=== PATIENT | male | born 1960 | race African-American/Black ===

== ENCOUNTER 2019-04-30 04:38 | Inpatient (IN) ==
[2019-04-30 05:25] LABS: Basophils % 0.3 % (0.0-0.8); Hematocrit 54.5 VOL% (42.0-52.0); Immature Granulocytes % 0.5 %; Immature Granulocytes Absolute 0.05 #; Lymphocytes # 1.1 10*3/uL (1.4-4.0); Lymphocytes % 10.4 % (21.2-54.2); Mean Corpuscular HGB Conc 31.2 GM/DL (32-36); Mean Corpuscular Volume 79.2 FL (87-102); Monocytes % 4.3 % (1.7-12.7); Neutrophils % 84.5 % (38.7-73.9); Platelet Count 247 T/CUMM (130-400); Red Blood Count 6.88 MC/CUMM (3.8-5.5); Red Cell Distribution Width 18.4 % (9.3-17.3); White Blood Count 10.1 T/CUMM (4-12)
[2019-04-30 06:48] LABS: Albumin 3.5 G/DL (3.4-5.0); Bilirubin,Total 0.5 MG/DL (0.2-1.0); Calcium 9.4 MG/DL (8.5-10.1); Osmolality,Calculated 276.4 MOS/KG (273-304); Total Protein 8.1 G/DL (6.4-8.3)
[2019-04-30] MEDS ORDERED: HYDROmorphone 2 MG/1 ML VIAL IV STA (07:47)
[2019-04-30] MEDS ORDERED: ONDANSETRON 4 MG/2 ML VIAL IV STA (07:47)
[2019-04-30] MEDS ORDERED: SODIUM CHLORIDE 0.9% 1,000 ML IV STA (07:48)
[2019-04-30] MEDS ORDERED: ONDANSETRON 4 MG/2 ML VIAL IV PRN (08:10)
[2019-04-30] MEDS ORDERED: BISACODYL 5 MG TABLET PO PRN (08:10)
[2019-04-30] MEDS ORDERED: LABETALOL 20 MG/4 ML SYRINGE IV ONE (08:25)
[2019-04-30] MEDS ORDERED: SODIUM CHLORIDE 0.9% 1,000 ML IV SCH (08:30)
[2019-04-30] MEDS ORDERED: DEXTROSE 50% 25 GM/50 ML VIAL IV PRN (08:32)
[2019-04-30] MEDS ORDERED: GLUCAGON 1 MG VIAL IM PRN (08:32)
[2019-04-30] MEDS ORDERED: amLODIPine 5 MG TABLET PO SCH (09:00)
[2019-04-30] MEDS ORDERED: INFLUENZA VIRUS VACCINE 0.5 ML SYRINGE IM ONE (10:34)
[2019-04-30 10:43] LABS: Risk Ratio 1.69; Thyroid Stimulating Hormone 2.47 uIU/ml (0.358-3.74); VLDL CHOLESTEROL 20.6 MG/DL
[2019-04-30] MEDS: PANTOPRAZOLE 40 MG VIAL IV SCH ×2 (12:23→21:18)
[2019-04-30] MEDS: ENOXAPARIN 30 MG/0.3 ML SYRINGE SUBCUT SCH (12:24)
[2019-04-30] MEDS: MORPHINE 4 MG/1 ML VIAL IV PRN ×3 (14:46→23:31)
[2019-04-30] MEDS: INSULIN LISPRO 100 UNIT/ML SUBCUT SCH ×2 (14:52→17:59)
[2019-04-30] MEDS: SODIUM CHLORIDE 0.9% 1,000 ML IV SCH ×3 (18:08→22:23)
[2019-04-30] MEDS: levETIRAcetam 500 MG TABLET PO SCH ×2 (21:18→23:54)
[2019-05-01] MEDS ORDERED: hydrALAZINE 20 MG/1 ML VIAL IV PRN (01:27)
[2019-05-01] MEDS ORDERED: SODIUM CHLORIDE 0.9% 1,000 ML IV SCH (02:30)
[2019-05-01] MEDS: MORPHINE 4 MG/1 ML VIAL IV PRN ×2 (04:41→09:01)
[2019-05-01 06:27] LABS: Basophils % 0.4 % (0.0-0.8); Hematocrit 46.8 VOL% (42.0-52.0); Immature Granulocytes % 0.4 %; Immature Granulocytes Absolute 0.04 #; Lymphocytes # 0.9 10*3/uL (1.4-4.0); Mean Corpuscular HGB Conc 32.1 GM/DL (32-36); Mean Corpuscular Volume 77.7 FL (87-102); Mean Platelet Volume 10.4 FL (9.6-12.0); Monocytes % 4.2 % (1.7-12.7); Platelet Count 218 T/CUMM (130-400); Red Blood Count 6.02 MC/CUMM (3.8-5.5); Red Cell Distribution Width 17.4 % (9.3-17.3); White Blood Count 10.3 T/CUMM (4-12)
[2019-05-01 07:17] LABS: Albumin 2.7 G/DL (3.4-5.0); Bilirubin,Total 1.6 MG/DL (0.2-1.0); Calcium 8.5 MG/DL (8.5-10.1); Osmolality,Calculated 292.4 MOS/KG (273-304); Total Protein 6.6 G/DL (6.4-8.3)
[2019-05-01] MEDS: PANTOPRAZOLE 40 MG VIAL IV SCH ×2 (09:04→21:00)
[2019-05-01] MEDS: ENOXAPARIN 30 MG/0.3 ML SYRINGE SUBCUT SCH (09:10)
[2019-05-01] MEDS: amLODIPine 10 MG TABLET PO SCH (09:11)
[2019-05-01] MEDS: INSULIN LISPRO 100 UNIT/ML SUBCUT SCH ×4 (09:27→19:09)
[2019-05-01] MEDS ORDERED: LORazepam 2 MG/1 ML VIAL IV PRN (11:36)
[2019-05-01] MEDS ORDERED: LABETALOL 100 MG/20 ML VIAL IV ONE (11:45)
[2019-05-01] MEDS: LACTATED RINGERS 1,000 ML IV SCH ×3 (12:00→22:33)
[2019-05-01] MEDS: HYDROmorphone 2 MG/1 ML VIAL IV PRN ×3 (14:18→22:35)
[2019-05-01] MEDS: MEROPENEM 500 MG in SODIUM CHLORIDE 0.9% 100 ML IV SCH ×2 (15:04→20:59)
[2019-05-01 23:50] LABS: Barbiturates Screen,Urine Negative (Negative); Benzodiazepines Screen,Urine Negative (Negative); Cannabinoid Screen,Urine Positive (Negative); Opiate Screen,Urine Positive (Negative); Phencyclidine Screen,Urine Negative (Negative)
[2019-05-02 01:41] LABS: Basophils % 0.2 % (0.0-0.8); Eosinophils % 0.1 % (0.00-10.9); Hematocrit 38.4 VOL% (42.0-52.0); Hemoglobin 12.4 GM/DL (14.0-18.0); Immature Granulocytes % 0.3 %; Immature Granulocytes Absolute 0.03 #; Lymphocytes # 0.9 10*3/uL (1.4-4.0); Lymphocytes % 9.6 % (21.2-54.2); Mean Corpuscular HGB Conc 32.3 GM/DL (32-36); Mean Corpuscular Volume 77.6 FL (87-102); Mean Platelet Volume 10.5 FL (9.6-12.0); Monocytes % 3.5 % (1.7-12.7); Neutrophils % 86.3 % (38.7-73.9); Platelet Count 156 T/CUMM (130-400); Red Blood Count 4.95 MC/CUMM (3.8-5.5); Red Cell Distribution Width 16.1 % (9.3-17.3); White Blood Count 9.2 T/CUMM (4-12)
[2019-05-02 01:51] LABS: Albumin 2.2 G/DL (3.4-5.0); Bilirubin,Total 0.6 MG/DL (0.2-1.0); Calcium 8.4 MG/DL (8.5-10.1); Total Protein 5.9 G/DL (6.4-8.3)
[2019-05-02] MEDS: HYDROmorphone 2 MG/1 ML VIAL IV PRN ×5 (02:33→23:59)
[2019-05-02] MEDS: MEROPENEM 500 MG in SODIUM CHLORIDE 0.9% 100 ML IV SCH ×3 (04:54→21:14)
[2019-05-02] MEDS: LACTATED RINGERS 1,000 ML IV SCH ×3 (04:56→14:29)
[2019-05-02] MEDS: INSULIN LISPRO 100 UNIT/ML SUBCUT SCH ×4 (07:33→17:58)
[2019-05-02] MEDS: amLODIPine 10 MG TABLET PO SCH (09:03)
[2019-05-02] MEDS: ENOXAPARIN 30 MG/0.3 ML SYRINGE SUBCUT SCH (09:03)
[2019-05-02] MEDS: PANTOPRAZOLE 40 MG VIAL IV SCH ×2 (09:07→21:15)
[2019-05-02] MEDS ORDERED: LOSARTAN/HCTZ 50-12.5 MG TABLET PO SCH (11:45)
[2019-05-02] MEDS: METOPROLOL TARTRATE 25 MG TABLET PO SCH ×2 (14:06→21:14)
[2019-05-02] MEDS: levETIRAcetam 500 MG TABLET PO SCH (21:14)
[2019-05-03] MEDS: LACTATED RINGERS 1,000 ML IV SCH ×4 (00:01→23:42)
[2019-05-03] MEDS: INSULIN LISPRO 100 UNIT/ML SUBCUT SCH ×4 (00:03→18:01)
[2019-05-03 05:13] LABS: Basophils % 0.2 % (0.0-0.8); Eosinophils % 0.4 % (0.00-10.9); Hematocrit 34.6 VOL% (42.0-52.0); Hemoglobin 11.2 GM/DL (14.0-18.0); Immature Granulocytes % 0.8 %; Immature Granulocytes Absolute 0.08 #; Lymphocytes # 1.2 10*3/uL (1.4-4.0); Lymphocytes % 11.4 % (21.2-54.2); Mean Corpuscular HGB Conc 32.4 GM/DL (32-36); Mean Corpuscular Volume 76.5 FL (87-102); Mean Platelet Volume 10.3 FL (9.6-12.0); Monocytes % 5.8 % (1.7-12.7); Neutrophils % 81.4 % (38.7-73.9); Platelet Count 163 T/CUMM (130-400); Red Blood Count 4.52 MC/CUMM (3.8-5.5); Red Cell Distribution Width 15.1 % (9.3-17.3); White Blood Count 10.3 T/CUMM (4-12)
[2019-05-03] MEDS: MEROPENEM 500 MG in SODIUM CHLORIDE 0.9% 100 ML IV SCH ×3 (05:19→21:08)
[2019-05-03 05:44] LABS: Albumin 2.3 G/DL (3.4-5.0); Bilirubin,Total 0.9 MG/DL (0.2-1.0); Calcium 8.9 MG/DL (8.5-10.1); Osmolality,Calculated 278.5 MOS/KG (273-304); Total Protein 6.4 G/DL (6.4-8.3)
[2019-05-03] MEDS: ENOXAPARIN 30 MG/0.3 ML SYRINGE SUBCUT SCH ×2 (08:57→09:59)
[2019-05-03] MEDS ORDERED: LOSARTAN 50 MG TABLET PO SCH (09:00)
[2019-05-03 09:40] LABS: INR 0.9; PT Patient Result 10.1 SECS (9.6-12.2)
[2019-05-03] MEDS: amLODIPine 10 MG TABLET PO SCH (09:58)
[2019-05-03] MEDS: levETIRAcetam 500 MG TABLET PO SCH ×2 (09:58→21:09)
[2019-05-03] MEDS: METOPROLOL TARTRATE 25 MG TABLET PO SCH ×2 (09:58→21:09)
[2019-05-03] MEDS: LABETALOL 100 MG/20 ML VIAL IV PRN (10:45)
[2019-05-03] MEDS: HYDROmorphone 2 MG/1 ML VIAL IV PRN ×2 (10:47→21:02)
[2019-05-03] MEDS: PANTOPRAZOLE 40 MG VIAL IV SCH ×2 (10:53→21:04)
[2019-05-03 13:13] LABS: Folate 6.1 NG/ML (5.4-24.0)
[2019-05-03] MEDS: SIMETHICONE CHEW 125 MG TABLET PO SCH ×3 (13:48→21:08)
[2019-05-03] MEDS: ACETAMINOPHEN 325 MG TABLET PO PRN (18:44)
[2019-05-04] MEDS: LABETALOL 100 MG/20 ML VIAL IV PRN (00:36)
[2019-05-04] MEDS: INSULIN LISPRO 100 UNIT/ML SUBCUT SCH ×4 (00:42→17:45)
[2019-05-04] MEDS: HYDROmorphone 2 MG/1 ML VIAL IV PRN ×5 (01:50→20:38)
[2019-05-04] MEDS: MEROPENEM 500 MG in SODIUM CHLORIDE 0.9% 100 ML IV SCH ×3 (05:59→20:45)
[2019-05-04 06:34] LABS: Basophils % 0.3 % (0.0-0.8); Eosinophils # 0.1 10*3/uL (0.0-0.87); Eosinophils % 0.4 % (0.00-10.9); Hematocrit 33.9 VOL% (42.0-52.0); Hemoglobin 11.2 GM/DL (14.0-18.0); Immature Granulocytes % 0.5 %; Immature Granulocytes Absolute 0.06 #; Lymphocytes # 0.9 10*3/uL (1.4-4.0); Lymphocytes % 7.7 % (21.2-54.2); Mean Corpuscular Volume 74.8 FL (87-102); Monocytes % 6.9 % (1.7-12.7); Neutrophils % 84.2 % (38.7-73.9); Platelet Count 190 T/CUMM (130-400); Red Blood Count 4.53 MC/CUMM (3.8-5.5); Red Cell Distribution Width 15.2 % (9.3-17.3); White Blood Count 11.9 T/CUMM (4-12)
[2019-05-04 07:06] LABS: Bilirubin,Direct 0.42 MG/DL (0.0-0.20); Bilirubin,Indirect 1.2 MG/DL (0.0-1.0); Bilirubin,Total 1.6 MG/DL (0.2-1.0); Calcium 8.8 MG/DL (8.5-10.1); Osmolality,Calculated 273.8 MOS/KG (273-304); Total Protein 6.4 G/DL (6.4-8.3)
[2019-05-04] MEDS: METOPROLOL TARTRATE 25 MG TABLET PO SCH ×2 (08:55→20:47)
[2019-05-04] MEDS: amLODIPine 10 MG TABLET PO SCH (08:55)
[2019-05-04] MEDS: SIMETHICONE CHEW 125 MG TABLET PO SCH ×3 (08:55→20:47)
[2019-05-04] MEDS: PANTOPRAZOLE 40 MG VIAL IV SCH ×2 (08:56→20:44)
[2019-05-04] MEDS: ENOXAPARIN 30 MG/0.3 ML SYRINGE SUBCUT SCH (08:56)
[2019-05-04] MEDS: levETIRAcetam 500 MG TABLET PO SCH ×2 (08:56→20:47)
[2019-05-04] MEDS: LACTATED RINGERS 1,000 ML IV SCH ×4 (08:59→23:20)
[2019-05-05] MEDS: INSULIN LISPRO 100 UNIT/ML SUBCUT SCH ×4 (00:40→19:19)
[2019-05-05] MEDS: HYDROmorphone 2 MG/1 ML VIAL IV PRN ×3 (02:13→17:26)
[2019-05-05] MEDS: LABETALOL 100 MG/20 ML VIAL IV PRN (02:16)
[2019-05-05 05:07] LABS: Basophils % 0.2 % (0.0-0.8); Eosinophils # 0.1 10*3/uL (0.0-0.87); Eosinophils % 0.6 % (0.00-10.9); Hematocrit 33.8 VOL% (42.0-52.0); Hemoglobin 11.1 GM/DL (14.0-18.0); Immature Granulocytes % 0.7 %; Immature Granulocytes Absolute 0.09 #; Lymphocytes # 1.1 10*3/uL (1.4-4.0); Lymphocytes % 8.9 % (21.2-54.2); Mean Corpuscular HGB Conc 32.8 GM/DL (32-36); Mean Corpuscular Volume 74.8 FL (87-102); Mean Platelet Volume 10.5 FL (9.6-12.0); Monocytes % 7.7 % (1.7-12.7); Neutrophils % 81.9 % (38.7-73.9); Platelet Count 226 T/CUMM (130-400); Red Blood Count 4.52 MC/CUMM (3.8-5.5); Red Cell Distribution Width 14.8 % (9.3-17.3); White Blood Count 12.8 T/CUMM (4-12)
[2019-05-05 05:30] LABS: Calcium 8.8 MG/DL (8.5-10.1); Osmolality,Calculated 277.7 MOS/KG (273-304)
[2019-05-05] MEDS: MEROPENEM 500 MG in SODIUM CHLORIDE 0.9% 100 ML IV SCH ×3 (06:52→21:02)
[2019-05-05] MEDS: LACTATED RINGERS 1,000 ML IV SCH ×2 (06:55→17:27)
[2019-05-05] MEDS: SIMETHICONE CHEW 125 MG TABLET PO SCH ×4 (09:34→21:01)
[2019-05-05] MEDS: amLODIPine 10 MG TABLET PO SCH (09:50)
[2019-05-05] MEDS: ACETAMINOPHEN 325 MG TABLET PO PRN (09:50)
[2019-05-05] MEDS: levETIRAcetam 500 MG TABLET PO SCH ×2 (09:50→21:01)
[2019-05-05] MEDS: METOPROLOL TARTRATE 25 MG TABLET PO SCH ×2 (09:50→21:01)
[2019-05-05] MEDS: PANTOPRAZOLE 40 MG VIAL IV SCH ×2 (09:51→21:03)
[2019-05-05] MEDS: ENOXAPARIN 30 MG/0.3 ML SYRINGE SUBCUT SCH (09:51)
[2019-05-06] MEDS: LACTATED RINGERS 1,000 ML IV SCH ×4 (01:04→19:12)
[2019-05-06] MEDS: HYDROmorphone 2 MG/1 ML VIAL IV PRN ×2 (01:05→16:53)
[2019-05-06] MEDS: MEROPENEM 500 MG in SODIUM CHLORIDE 0.9% 100 ML IV SCH ×3 (05:20→21:27)
[2019-05-06 05:51] LABS: Basophils % 0.4 % (0.0-0.8); Eosinophils # 0.1 10*3/uL (0.0-0.87); Eosinophils % 0.6 % (0.00-10.9); Hematocrit 33.4 VOL% (42.0-52.0); Immature Granulocytes % 0.9 %; Lymphocytes # 1.1 10*3/uL (1.4-4.0); Lymphocytes % 9.5 % (21.2-54.2); Mean Corpuscular HGB Conc 32.9 GM/DL (32-36); Mean Corpuscular Volume 74.7 FL (87-102); Mean Platelet Volume 10.5 FL (9.6-12.0); Monocytes % 7.5 % (1.7-12.7); Neutrophils % 81.1 % (38.7-73.9); Platelet Count 266 T/CUMM (130-400); Red Blood Count 4.47 MC/CUMM (3.8-5.5); Red Cell Distribution Width 14.6 % (9.3-17.3)
[2019-05-06] MEDS: INSULIN LISPRO 100 UNIT/ML SUBCUT SCH ×4 (06:14→17:37)
[2019-05-06 06:18] LABS: Calcium 8.7 MG/DL (8.5-10.1); Osmolality,Calculated 274.7 MOS/KG (273-304)
[2019-05-06] MEDS: PANTOPRAZOLE 40 MG VIAL IV SCH ×2 (09:01→21:28)
[2019-05-06] MEDS: METOPROLOL TARTRATE 50 MG TABLET PO SCH ×2 (09:01→21:28)
[2019-05-06] MEDS: ENOXAPARIN 30 MG/0.3 ML SYRINGE SUBCUT SCH (09:01)
[2019-05-06] MEDS: SIMETHICONE CHEW 125 MG TABLET PO SCH ×4 (09:01→21:28)
[2019-05-06] MEDS: amLODIPine 10 MG TABLET PO SCH (09:01)
[2019-05-06] MEDS: levETIRAcetam 500 MG TABLET PO SCH ×2 (09:01→21:28)
[2019-05-07] MEDS: HYDROmorphone 2 MG/1 ML VIAL IV PRN ×3 (01:25→21:28)
[2019-05-07] MEDS: MEROPENEM 500 MG in SODIUM CHLORIDE 0.9% 100 ML IV SCH ×3 (05:18→21:30)
[2019-05-07 05:34] LABS: Basophils # 0.1 10*3/uL (0.0-0.2); Basophils % 0.4 % (0.0-0.8); Eosinophils # 0.1 10*3/uL (0.0-0.87); Eosinophils % 0.7 % (0.00-10.9); Hematocrit 31.6 VOL% (42.0-52.0); Hemoglobin 10.4 GM/DL (14.0-18.0); Immature Granulocytes % 1.2 %; Immature Granulocytes Absolute 0.13 #; Lymphocytes # 1.3 10*3/uL (1.4-4.0); Lymphocytes % 11.5 % (21.2-54.2); Mean Corpuscular HGB Conc 32.9 GM/DL (32-36); Mean Corpuscular Volume 74.9 FL (87-102); Mean Platelet Volume 10.3 FL (9.6-12.0); Monocytes % 7.8 % (1.7-12.7); Neutrophils % 78.4 % (38.7-73.9); Platelet Count 304 T/CUMM (130-400); Red Blood Count 4.22 MC/CUMM (3.8-5.5); Red Cell Distribution Width 14.7 % (9.3-17.3); White Blood Count 11.3 T/CUMM (4-12)
[2019-05-07 05:54] LABS: Anisocytosis Slight; Hypochromasia 1+; Microcytosis 2+; Target Cells 1+
[2019-05-07 05:55] LABS: Platelet Estimate Normal
[2019-05-07 06:14] LABS: Calcium 8.5 MG/DL (8.5-10.1); Osmolality,Calculated 277.4 MOS/KG (273-304)
[2019-05-07] MEDS: INSULIN LISPRO 100 UNIT/ML SUBCUT SCH ×4 (07:18→17:17)
[2019-05-07] MEDS ORDERED: MAGNESIUM SULF RIDER 2 GM in PREMIX 1 EACH IV PRN (07:42)
[2019-05-07] MEDS ORDERED: MAGNESIUM SULF RIDER 4 GM in PREMIX 1 EACH IV PRN (07:42)
[2019-05-07] MEDS: LACTATED RINGERS 1,000 ML IV SCH ×3 (08:43→22:45)
[2019-05-07] MEDS: SIMETHICONE CHEW 125 MG TABLET PO SCH ×4 (08:43→21:26)
[2019-05-07] MEDS: ENOXAPARIN 30 MG/0.3 ML SYRINGE SUBCUT SCH (08:44)
[2019-05-07] MEDS: levETIRAcetam 500 MG TABLET PO SCH ×2 (08:44→21:26)
[2019-05-07] MEDS: amLODIPine 10 MG TABLET PO SCH (08:44)
[2019-05-07] MEDS: PANTOPRAZOLE 40 MG VIAL IV SCH ×2 (08:44→21:26)
[2019-05-07] MEDS: METOPROLOL TARTRATE 50 MG TABLET PO SCH ×2 (08:44→21:26)
[2019-05-07] MEDS ORDERED: TISSUE ADHESIVE 1 EACH APPLICATOR TOP ONE (09:40)
[2019-05-07 09:57] LABS: Neutrophils,Peritoneal Fluid 92 %
[2019-05-07 10:00] LABS: RBC,Peritoneal Fluid 3160 T/CUMM
[2019-05-07] MEDS: POTASSIUM CHLORIDE 20 MEQ TABLET PO PRN ×2 (17:47→21:26)
[2019-05-08] MEDS: INSULIN LISPRO 100 UNIT/ML SUBCUT SCH ×4 (01:41→17:23)
[2019-05-08] MEDS: HYDROmorphone 2 MG/1 ML VIAL IV PRN ×5 (05:16→21:14)
[2019-05-08] MEDS: MEROPENEM 500 MG in SODIUM CHLORIDE 0.9% 100 ML IV SCH ×3 (05:18→21:22)
[2019-05-08] MEDS: levETIRAcetam 500 MG TABLET PO SCH ×2 (08:54→21:21)
[2019-05-08] MEDS: amLODIPine 10 MG TABLET PO SCH (08:54)
[2019-05-08] MEDS: METOPROLOL TARTRATE 50 MG TABLET PO SCH ×2 (08:54→21:21)
[2019-05-08] MEDS: SIMETHICONE CHEW 125 MG TABLET PO SCH ×4 (08:54→21:21)
[2019-05-08] MEDS: PANTOPRAZOLE 40 MG VIAL IV SCH ×2 (08:58→21:18)
[2019-05-08] MEDS: ENOXAPARIN 30 MG/0.3 ML SYRINGE SUBCUT SCH (08:58)
[2019-05-08] MEDS: LACTATED RINGERS 1,000 ML IV SCH ×2 (09:15→18:06)
[2019-05-09] MEDS: HYDROmorphone 2 MG/1 ML VIAL IV PRN ×2 (01:31→20:41)
[2019-05-09] MEDS: INSULIN LISPRO 100 UNIT/ML SUBCUT SCH ×4 (01:45→19:21)
[2019-05-09] MEDS: MEROPENEM 500 MG in SODIUM CHLORIDE 0.9% 100 ML IV SCH ×3 (04:55→20:42)
[2019-05-09] MEDS: LACTATED RINGERS 1,000 ML IV SCH (04:55)
[2019-05-09] MEDS: PANTOPRAZOLE 40 MG VIAL IV SCH ×2 (09:02→20:41)
[2019-05-09] MEDS: amLODIPine 10 MG TABLET PO SCH (09:04)
[2019-05-09] MEDS: METOPROLOL TARTRATE 50 MG TABLET PO SCH ×2 (09:04→20:46)
[2019-05-09] MEDS: ENOXAPARIN 30 MG/0.3 ML SYRINGE SUBCUT SCH (09:04)
[2019-05-09] MEDS: levETIRAcetam 500 MG TABLET PO SCH ×2 (09:04→20:41)
[2019-05-09] MEDS: SIMETHICONE CHEW 125 MG TABLET PO SCH ×4 (09:04→20:41)
[2019-05-10] MEDS: HYDROmorphone 2 MG/1 ML VIAL IV PRN ×2 (00:05→04:28)
[2019-05-10] MEDS: INSULIN LISPRO 100 UNIT/ML SUBCUT SCH ×3 (00:54→13:19)
[2019-05-10] MEDS: MEROPENEM 500 MG in SODIUM CHLORIDE 0.9% 100 ML IV SCH ×2 (04:27→13:19)
[2019-05-10] MEDS: LACTATED RINGERS 1,000 ML IV SCH ×4 (04:27→11:36)
[2019-05-10 05:05] LABS: Basophils # 0.1 10*3/uL (0.0-0.2); Basophils % 0.5 % (0.0-0.8); Eosinophils # 0.1 10*3/uL (0.0-0.87); Hematocrit 33.2 VOL% (42.0-52.0); Hemoglobin 10.8 GM/DL (14.0-18.0); Immature Granulocytes % 1.2 %; Immature Granulocytes Absolute 0.11 #; Lymphocytes # 1.5 10*3/uL (1.4-4.0); Lymphocytes % 15.9 % (21.2-54.2); Mean Corpuscular HGB Conc 32.5 GM/DL (32-36); Mean Corpuscular Volume 74.4 FL (87-102); Mean Platelet Volume 10.7 FL (9.6-12.0); Monocytes % 5.8 % (1.7-12.7); Neutrophils % 75.6 % (38.7-73.9); Platelet Count 438 T/CUMM (130-400); Red Blood Count 4.46 MC/CUMM (3.8-5.5); Red Cell Distribution Width 14.7 % (9.3-17.3); White Blood Count 9.5 T/CUMM (4-12)
[2019-05-10 05:24] LABS: Calcium 8.3 MG/DL (8.5-10.1)
[2019-05-10 05:26] LABS: Hypochromasia 1+; Microcytosis Slight; Platelet Estimate Adequate
[2019-05-10] MEDS: PANTOPRAZOLE 40 MG VIAL IV SCH (09:01)
[2019-05-10] MEDS: ENOXAPARIN 30 MG/0.3 ML SYRINGE SUBCUT SCH (09:03)
[2019-05-10] MEDS: METOPROLOL TARTRATE 50 MG TABLET PO SCH (09:04)
[2019-05-10] MEDS: levETIRAcetam 500 MG TABLET PO SCH (09:04)
[2019-05-10] MEDS: amLODIPine 10 MG TABLET PO SCH (09:04)
[2019-05-10] MEDS: SIMETHICONE CHEW 125 MG TABLET PO SCH ×2 (09:04→13:19)
[2019-05-10 11:34] VITALS: BP 171/93
== END 2019-05-10 13:02 | disposition home health service (06) | DRG 282 ==
LOC: EDUNIT# → EDBD → N.ED 04:38 → SUATTDRO 08:10 → N.EDINP 08:10 → N.3E 09:07
PROVIDERS: ADMIT Hospitalist; ATTEND Family Medicine

== ENCOUNTER 2022-03-15 19:08 | Inpatient (IN) ==
[2022-03-15] MEDS ORDERED: ONDANSETRON 4 MG/2 ML VIAL IV PRN ×2 (19:44→21:54)
[2022-03-15 19:52] LABS: Basophils # 0.1 10*3/uL (0.0-0.2); Basophils % 1.3 % (0.0-0.8); Hematocrit 40.5 VOL% (42.0-52.0); Hemoglobin 12.9 GM/DL (14.0-18.0); Immature Granulocytes % 0.3 %; Immature Granulocytes Absolute 0.01 #; Lymphocytes # 1.1 10*3/uL (1.4-4.0); Lymphocytes % 28.8 % (21.2-54.2); Mean Corpuscular HGB Conc 31.9 GM/DL (32-36); Mean Corpuscular Volume 85.6 FL (87-102); Mean Platelet Volume 9.9 FL (9.6-12.0); Monocytes # 0.3 10*3/uL (0.11-0.8); Monocytes % 8.3 % (1.7-12.7); Neutrophils % 60.3 % (38.7-73.9); Platelet Count 163 T/CUMM (130-400); Red Blood Count 4.73 MC/CUMM (3.8-5.5); Red Cell Distribution Width 16.6 % (9.3-17.3); White Blood Count 3.9 T/CUMM (4-12)
[2022-03-15 20:01] LABS: INR 1.1; PT Patient Result 11.6 SECS (10.1-12.1); Partial Thromboplastin Time 26.8 SECS (23.7-32.9)
[2022-03-15 20:07] LABS: Alanine Aminotransferase 34 U/L (16-61); Alkaline Phosphatase 58 U/L (45-117); Aspartate Amino Transferase 94 U/L (0-37); Blood Urea Nitrogen 9 MG/DL (7-18); Calcium 9.4 MG/DL (8.5-10.1); Carbon Dioxide 21 MMOL/L (21-32); Chloride 101 MMOL/L (98-107); Glucose 99 MG/DL (74-106); Osmolality,Calculated 279.3 MOS/KG (273-304); Potassium 2.6 MMOL/L (3.5-5.1); Sodium 141 MMOL/L (136-145); Total Protein 7.4 G/DL (6.4-8.2)
[2022-03-15] MEDS ORDERED: amLODIPine 5 MG TABLET PO STA (20:24)
[2022-03-15] MEDS ORDERED: levETIRAcetam 500 MG/5 ML VIAL IV ONE (20:27)
[2022-03-15] MEDS ORDERED: SODIUM CHLORIDE 0.9% 1,000 ML IV STA (21:11)
[2022-03-15] MEDS ORDERED: POTASSIUM CHLORIDE 20 MEQ TABLET PO STA (21:13)
[2022-03-15] MEDS ORDERED: POTASSIUM CHLORIDE RIDER 20 MEQ/100 ML PREMIX IV STA (21:15)
[2022-03-15] MEDS ORDERED: POTASSIUM CHLORIDE RIDER 20 MEQ/200 ML PREMIX IV ONE (21:20)
[2022-03-15 21:25] LABS: Bacteria,Urine Many /HPF (Few); Mucus,Urine Occasional /LPF (Occasional)
[2022-03-15 21:28] LABS: Bilirubin,Urine Small mg/dL (Negative); Blood, Urine Trace mg/dL (Negative); Glucose,Urine (UA) 100 mg/dL (Negative); Ketones,Urine 15 mg/dL (Negative); Nitrite,Urine Negative (Negative); Protein,Urine 100 mg/dL (Negative); Urine Appearance Clear (Clear); Urine Color Yellow (Yellow); Urine Specific Gravity 1.025 (1.001-1.035)
[2022-03-15] MEDS: POTASSIUM CHLORIDE RIDER 10 MEQ/100 ML PREMIX IV SCH ×2 (21:30→22:30)
[2022-03-15] MEDS ORDERED: SODIUM CHLOR 0.9% KCL 20 MEQ 20 MEQ/1,000 ML BAG IV SCH (21:30)
[2022-03-15] MEDS ORDERED: NICOTINE 21 MG/24 HR PATCH TRANSDERM PRN (21:54)
[2022-03-15] MEDS ORDERED: guaiFENesin/DM ER 600-30 MG TABLET PO PRN (21:54)
[2022-03-15] MEDS ORDERED: ACETAMINOPHEN 325 MG TABLET PO PRN (21:54)
[2022-03-15] MEDS ORDERED: ZALEPLON 5 MG CAPSULE PO PRN (21:54)
[2022-03-15] MEDS ORDERED: diphenhydrAMINE CAP 25 MG CAPSULE PO PRN (21:54)
[2022-03-15] MEDS ORDERED: ALBUTEROL/IPRATROPIUM 3 ML NEB RESP TX PRN (21:54)
[2022-03-15 22:11] LABS: Barbiturates Screen,Urine Negative (Negative); Benzodiazepines Screen,Urine Negative (Negative); Cannabinoid Screen,Urine Positive (Negative); Opiate Screen,Urine Positive (Negative); Phencyclidine Screen,Urine Negative (Negative)
[2022-03-15] MEDS: hydrALAZINE 20 MG/1 ML VIAL IV PRN (22:30)
[2022-03-15] MEDS ORDERED: MAGNESIUM SULF RIDER 2 GM/50 ML PREMIX IV STA (22:54)
[2022-03-15] MEDS ORDERED: hydrALAZINE 20 MG/1 ML VIAL IV STA (22:56)
[2022-03-15] MEDS: cefTRIAXone 1,000 MG in SODIUM CHLORIDE 0.9% 100 ML IV SCH (23:05)
[2022-03-16] MEDS: MORPHINE 2 MG/1 ML SYRINGE IV PRN ×2 (00:50→04:52)
[2022-03-16 04:48] LABS: Basophils % 0.6 % (0.0-0.8); Eosinophils % 0.2 % (0.00-10.9); Hematocrit 38.1 VOL% (42.0-52.0); Hemoglobin 12.6 GM/DL (14.0-18.0); Immature Granulocytes % 0.3 %; Immature Granulocytes Absolute 0.02 #; Lymphocytes % 15.2 % (21.2-54.2); Mean Corpuscular HGB Conc 33.1 GM/DL (32-36); Mean Corpuscular Volume 83.4 FL (87-102); Mean Platelet Volume 10.7 FL (9.6-12.0); Monocytes # 0.5 10*3/uL (0.11-0.8); Monocytes % 7.2 % (1.7-12.7); Neutrophils % 76.5 % (38.7-73.9); Platelet Count 152 T/CUMM (130-400); Red Blood Count 4.57 MC/CUMM (3.8-5.5); Red Cell Distribution Width 16.4 % (9.3-17.3); White Blood Count 6.3 T/CUMM (4-12)
[2022-03-16] MEDS: LORazepam 2 MG/1 ML VIAL IV PRN ×2 (04:53→22:17)
[2022-03-16 05:03] LABS: Calcium 9.2 MG/DL (8.5-10.1); Osmolality,Calculated 274.5 MOS/KG (273-304); Potassium 2.9 MMOL/L (3.5-5.1)
[2022-03-16] MEDS: hydrALAZINE 20 MG/1 ML VIAL IV PRN ×2 (06:05→21:34)
[2022-03-16] MEDS ORDERED: POTASSIUM CHLORIDE INJ 40 MEQ in SODIUM CHLORIDE 0.45% 1,000 ML IV SCH (07:00)
[2022-03-16] MEDS: POTASSIUM CHLORIDE 20 MEQ TABLET PO SCH ×2 (07:57→19:59)
[2022-03-16] MEDS: SODIUM CHLOR 0.9% KCL 40 MEQ 40 MEQ/1,000 ML BAG IV SCH ×2 (08:03→22:58)
[2022-03-16] MEDS: METOPROLOL TARTRATE 50 MG TABLET PO SCH ×2 (10:51→21:46)
[2022-03-16] MEDS: MAGNESIUM CHLORIDE 64 MG TABLET PO SCH ×2 (10:51→21:47)
[2022-03-16] MEDS: PANTOPRAZOLE 40 MG TABLET PO SCH (10:51)
[2022-03-16] MEDS: amLODIPine 10 MG TABLET PO SCH (10:51)
[2022-03-16] MEDS ORDERED: levETIRAcetam 500 MG/5 ML VIAL IV ONE ×2 (11:56→22:14)
[2022-03-16] MEDS: cefTRIAXone 1,000 MG in SODIUM CHLORIDE 0.9% 100 ML IV SCH (23:24)
[2022-03-17 05:20] LABS: Basophils # 0.1 10*3/uL (0.0-0.2); Basophils % 0.8 % (0.0-0.8); Eosinophils % 0.3 % (0.00-10.9); Hematocrit 37.8 VOL% (42.0-52.0); Immature Granulocytes % 0.3 %; Immature Granulocytes Absolute 0.02 #; Lymphocytes % 17.3 % (21.2-54.2); Mean Corpuscular HGB Conc 31.7 GM/DL (32-36); Mean Corpuscular Volume 86.7 FL (87-102); Mean Platelet Volume 10.2 FL (9.6-12.0); Monocytes # 0.5 10*3/uL (0.11-0.8); Monocytes % 8.7 % (1.7-12.7); Neutrophils % 72.6 % (38.7-73.9); Platelet Count 157 T/CUMM (130-400); Red Blood Count 4.36 MC/CUMM (3.8-5.5); Red Cell Distribution Width 16.7 % (9.3-17.3)
[2022-03-17 05:30] LABS: Calcium 9.4 MG/DL (8.5-10.1); Potassium 3.8 MMOL/L (3.5-5.1)
[2022-03-17] MEDS: MAGNESIUM CHLORIDE 64 MG TABLET PO SCH ×2 (08:29→21:42)
[2022-03-17] MEDS: PANTOPRAZOLE 40 MG TABLET PO SCH ×2 (08:29→10:09)
[2022-03-17] MEDS: POTASSIUM CHLORIDE 20 MEQ TABLET PO SCH ×2 (08:29→21:42)
[2022-03-17] MEDS: amLODIPine 10 MG TABLET PO SCH ×2 (08:29→10:09)
[2022-03-17] MEDS: METOPROLOL TARTRATE 50 MG TABLET PO SCH ×2 (08:29→10:08)
[2022-03-17] MEDS: hydrALAZINE 20 MG/1 ML VIAL IV PRN (10:14)
[2022-03-17] MEDS: carvediloL 12.5 MG TABLET PO SCH ×2 (11:07→21:42)
[2022-03-17] MEDS: ASPIRIN EC 81 MG TABLET PO SCH (11:07)
[2022-03-17] MEDS: VALPROIC ACID INJ 500 MG in SODIUM CHLORIDE 0.9% 100 ML IV SCH ×2 (12:14→21:41)
[2022-03-17] MEDS: SODIUM CHLOR 0.9% KCL 40 MEQ 40 MEQ/1,000 ML BAG IV SCH (12:30)
[2022-03-17] MEDS: THIAMINE 200 MG/2 ML VIAL IV SCH (21:41)
[2022-03-17] MEDS: cefTRIAXone 1,000 MG in SODIUM CHLORIDE 0.9% 100 ML IV SCH (23:25)
[2022-03-18] MEDS: SODIUM CHLOR 0.9% KCL 40 MEQ 40 MEQ/1,000 ML BAG IV SCH (04:00)
[2022-03-18] MEDS: VALPROIC ACID INJ 500 MG in SODIUM CHLORIDE 0.9% 100 ML IV SCH ×3 (04:00→20:29)
[2022-03-18 05:10] LABS: Basophils # 0.1 10*3/uL (0.0-0.2); Basophils % 0.8 % (0.0-0.8); Eosinophils # 0.1 10*3/uL (0.0-0.87); Eosinophils % 0.8 % (0.00-10.9); Hematocrit 39.4 VOL% (42.0-52.0); Hemoglobin 12.8 GM/DL (14.0-18.0); Immature Granulocytes % 0.5 %; Immature Granulocytes Absolute 0.03 #; Lymphocytes # 0.9 10*3/uL (1.4-4.0); Lymphocytes % 14.3 % (21.2-54.2); Mean Corpuscular HGB Conc 32.5 GM/DL (32-36); Mean Corpuscular Volume 85.5 FL (87-102); Monocytes # 0.5 10*3/uL (0.11-0.8); Monocytes % 7.2 % (1.7-12.7); Neutrophils % 76.4 % (38.7-73.9); Platelet Count 150 T/CUMM (130-400); Red Blood Count 4.61 MC/CUMM (3.8-5.5); White Blood Count 6.3 T/CUMM (4-12)
[2022-03-18 05:28] LABS: Phosphorous 2.9 MG/DL (2.5-4.9)
[2022-03-18 05:32] LABS: Osmolality,Calculated 268.8 MOS/KG (273-304); Potassium 4.2 MMOL/L (3.5-5.1); Risk Ratio 3.24
[2022-03-18] MEDS: hydrALAZINE 20 MG/1 ML VIAL IV PRN ×2 (05:46→13:15)
[2022-03-18] MEDS ORDERED: MAGNESIUM SULF RIDER 2 GM/50 ML PREMIX IV ONE ×2 (06:32→08:15)
[2022-03-18] MEDS: POTASSIUM CHLORIDE 20 MEQ TABLET PO SCH ×2 (10:48→20:05)
[2022-03-18] MEDS: amLODIPine 10 MG TABLET PO SCH (10:49)
[2022-03-18] MEDS: carvediloL 12.5 MG TABLET PO SCH ×2 (10:49→20:05)
[2022-03-18] MEDS: ASPIRIN EC 81 MG TABLET PO SCH (10:49)
[2022-03-18] MEDS: THIAMINE 200 MG/2 ML VIAL IV SCH ×2 (10:50→20:29)
[2022-03-18] MEDS: CHOLECALCIFEROL 5,000 UNIT TABLET PO SCH (10:50)
[2022-03-18] MEDS: MAGNESIUM CHLORIDE 64 MG TABLET PO SCH ×2 (10:50→20:05)
[2022-03-18] MEDS: PANTOPRAZOLE 40 MG TABLET PO SCH (10:50)
[2022-03-18] MEDS ORDERED: LABETALOL 20 MG/4 ML SYRINGE IV PRN (17:16)
[2022-03-18] MEDS ORDERED: METOPROLOL TARTRATE 5 MG/5 ML VIAL IV SCH (18:00)
[2022-03-18] MEDS ORDERED: METOPROLOL TARTRATE 5 MG/5 ML VIAL IV PRN (18:20)
[2022-03-18] MEDS: cefTRIAXone 1,000 MG in SODIUM CHLORIDE 0.9% 100 ML IV SCH (22:58)
[2022-03-19] MEDS: VALPROIC ACID INJ 500 MG in SODIUM CHLORIDE 0.9% 100 ML IV SCH ×3 (02:50→18:22)
[2022-03-19] MEDS: SODIUM CHLOR 0.9% KCL 40 MEQ 40 MEQ/1,000 ML BAG IV SCH ×3 (02:50→14:54)
[2022-03-19] MEDS: hydrALAZINE 20 MG/1 ML VIAL IV PRN ×3 (04:15→23:13)
[2022-03-19 04:59] LABS: Basophils # 0.1 10*3/uL (0.0-0.2); Basophils % 0.7 % (0.0-0.8); Eosinophils # 0.2 10*3/uL (0.0-0.87); Eosinophils % 2.4 % (0.00-10.9); Hematocrit 38.1 VOL% (42.0-52.0); Hemoglobin 12.2 GM/DL (14.0-18.0); Immature Granulocytes % 0.3 %; Immature Granulocytes Absolute 0.02 #; Lymphocytes % 15.4 % (21.2-54.2); Mean Corpuscular Volume 84.9 FL (87-102); Mean Platelet Volume 9.7 FL (9.6-12.0); Monocytes # 0.5 10*3/uL (0.11-0.8); Monocytes % 7.5 % (1.7-12.7); Neutrophils % 73.7 % (38.7-73.9); Platelet Count 141 T/CUMM (130-400); Red Blood Count 4.49 MC/CUMM (3.8-5.5); Red Cell Distribution Width 16.2 % (9.3-17.3); White Blood Count 6.7 T/CUMM (4-12)
[2022-03-19 05:21] LABS: Calcium 9.9 MG/DL (8.5-10.1); Osmolality,Calculated 273.5 MOS/KG (273-304)
[2022-03-19] MEDS ORDERED: MAGNESIUM SULF RIDER 4 GM/100 ML PREMIX IV ONE (08:13)
[2022-03-19] MEDS: POTASSIUM CHLORIDE 20 MEQ TABLET PO SCH ×2 (08:17→18:23)
[2022-03-19] MEDS: CHOLECALCIFEROL 5,000 UNIT TABLET PO SCH (08:18)
[2022-03-19] MEDS: carvediloL 12.5 MG TABLET PO SCH ×2 (08:18→20:24)
[2022-03-19] MEDS: PANTOPRAZOLE 40 MG TABLET PO SCH (08:18)
[2022-03-19] MEDS: amLODIPine 10 MG TABLET PO SCH (08:18)
[2022-03-19] MEDS: MAGNESIUM CHLORIDE 64 MG TABLET PO SCH ×2 (08:18→20:23)
[2022-03-19] MEDS: ASPIRIN EC 81 MG TABLET PO SCH (10:05)
[2022-03-19] MEDS: THIAMINE 200 MG/2 ML VIAL IV SCH ×2 (10:06→20:23)
[2022-03-19] MEDS ORDERED: cloNIDine 0.3 MG/24 HR PATCH TRANSDERM SCH (15:00)
[2022-03-19] MEDS: cefTRIAXone 1,000 MG in SODIUM CHLORIDE 0.9% 100 ML IV SCH (22:27)
[2022-03-20] MEDS: SODIUM CHLOR 0.9% KCL 40 MEQ 40 MEQ/1,000 ML BAG IV SCH ×3 (00:58→17:14)
[2022-03-20] MEDS: VALPROIC ACID INJ 500 MG in SODIUM CHLORIDE 0.9% 100 ML IV SCH ×3 (03:22→18:45)
[2022-03-20 06:18] LABS: Basophils % 0.3 % (0.0-0.8); Eosinophils # 0.2 10*3/uL (0.0-0.87); Eosinophils % 2.8 % (0.00-10.9); Hematocrit 37.9 VOL% (42.0-52.0); Hemoglobin 12.3 GM/DL (14.0-18.0); Immature Granulocytes % 0.3 %; Immature Granulocytes Absolute 0.02 #; Lymphocytes # 0.5 10*3/uL (1.4-4.0); Lymphocytes % 7.5 % (21.2-54.2); Mean Corpuscular HGB Conc 32.5 GM/DL (32-36); Mean Corpuscular Volume 85.2 FL (87-102); Mean Platelet Volume 10.6 FL (9.6-12.0); Monocytes # 0.4 10*3/uL (0.11-0.8); Monocytes % 7.3 % (1.7-12.7); Neutrophils % 81.8 % (38.7-73.9); Platelet Count 163 T/CUMM (130-400); Red Blood Count 4.45 MC/CUMM (3.8-5.5); Red Cell Distribution Width 15.9 % (9.3-17.3)
[2022-03-20] MEDS: POTASSIUM CHLORIDE 20 MEQ TABLET PO SCH ×2 (06:30→18:45)
[2022-03-20 06:42] LABS: Phosphorous 3.1 MG/DL (2.5-4.9)
[2022-03-20 07:12] LABS: Calcium 9.5 MG/DL (8.5-10.1); Osmolality,Calculated 279.3 MOS/KG (273-304); Potassium 4.8 MMOL/L (3.5-5.1)
[2022-03-20] MEDS: hydrALAZINE 20 MG/1 ML VIAL IV PRN (07:25)
[2022-03-20] MEDS: OMEPRAZOLE ODT 20 MG TABLET PER TUBE SCH (09:25)
[2022-03-20] MEDS: ASPIRIN EC 81 MG TABLET PO SCH (09:25)
[2022-03-20] MEDS: amLODIPine 10 MG TABLET PO SCH (09:25)
[2022-03-20] MEDS: CHOLECALCIFEROL 5,000 UNIT TABLET PO SCH (09:25)
[2022-03-20] MEDS: carvediloL 12.5 MG TABLET PO SCH ×2 (09:25→22:26)
[2022-03-20] MEDS: MAGNESIUM CHLORIDE 64 MG TABLET PO SCH ×2 (09:25→22:24)
[2022-03-20] MEDS: THIAMINE 200 MG/2 ML VIAL IV SCH ×2 (09:26→22:25)
[2022-03-20] MEDS: LACOSAMIDE INJ 100 MG in SODIUM CHLORIDE 0.9% 50 ML IV SCH ×2 (10:53→20:28)
[2022-03-20] MEDS: LORazepam 2 MG/1 ML VIAL IV PRN (19:16)
[2022-03-20] MEDS: cefTRIAXone 1,000 MG in SODIUM CHLORIDE 0.9% 100 ML IV SCH (22:26)
[2022-03-21] MEDS: VALPROIC ACID INJ 500 MG in SODIUM CHLORIDE 0.9% 100 ML IV SCH ×3 (02:42→15:20)
[2022-03-21] MEDS: SODIUM CHLOR 0.9% KCL 40 MEQ 40 MEQ/1,000 ML BAG IV SCH ×2 (03:00→08:22)
[2022-03-21 06:40] LABS: Basophils % 0.2 % (0.0-0.8); Eosinophils # 0.2 10*3/uL (0.0-0.87); Eosinophils % 4.1 % (0.00-10.9); Hematocrit 34.7 VOL% (42.0-52.0); Hemoglobin 11.3 GM/DL (14.0-18.0); Immature Granulocytes % 0.4 %; Immature Granulocytes Absolute 0.02 #; Lymphocytes # 0.7 10*3/uL (1.4-4.0); Lymphocytes % 15.3 % (21.2-54.2); Mean Corpuscular HGB Conc 32.6 GM/DL (32-36); Mean Corpuscular Volume 84.8 FL (87-102); Mean Platelet Volume 11.5 FL (9.6-12.0); Monocytes # 0.3 10*3/uL (0.11-0.8); Monocytes % 6.3 % (1.7-12.7); Neutrophils % 73.7 % (38.7-73.9); Platelet Count 161 T/CUMM (130-400); Red Blood Count 4.09 MC/CUMM (3.8-5.5); Red Cell Distribution Width 15.8 % (9.3-17.3); White Blood Count 4.6 T/CUMM (4-12)
[2022-03-21 06:48] LABS: INR 0.9
[2022-03-21 06:57] LABS: Calcium 9.2 MG/DL (8.5-10.1); Osmolality,Calculated 278.3 MOS/KG (273-304); Potassium 5.5 MMOL/L (3.5-5.1)
[2022-03-21] MEDS: LACTATED RINGERS 1,000 ML IV SCH ×2 (08:23→08:44)
[2022-03-21] MEDS ORDERED: MAGNESIUM SULF RIDER 2 GM/50 ML PREMIX IV ONE (09:00)
[2022-03-21] MEDS: carvediloL 12.5 MG TABLET PO SCH ×2 (10:18→20:26)
[2022-03-21] MEDS: ASPIRIN EC 81 MG TABLET PO SCH (10:18)
[2022-03-21] MEDS: OMEPRAZOLE ODT 20 MG TABLET PER TUBE SCH (10:19)
[2022-03-21] MEDS: amLODIPine 10 MG TABLET PO SCH (10:19)
[2022-03-21] MEDS: CHOLECALCIFEROL 5,000 UNIT TABLET PO SCH (10:20)
[2022-03-21] MEDS: THIAMINE 200 MG/2 ML VIAL IV SCH ×2 (10:20→20:27)
[2022-03-21] MEDS: MAGNESIUM CHLORIDE 64 MG TABLET PO SCH ×2 (10:20→20:27)
[2022-03-21] MEDS ORDERED: ENOXAPARIN 40 MG/0.4 ML SYRINGE SUBCUT SCH (10:30)
[2022-03-21] MEDS: hydrALAZINE 20 MG/1 ML VIAL IV PRN (11:02)
[2022-03-21 11:16] LABS: Arterial Base Excess iSTAT 0 MMOL/L (-2.5-2.5); Arterial Bicarbonate iSTAT 25.9 MMOL/L (20-26); Arterial O2 Saturation iSTAT 100 % (95-100); Arterial PCO2 iSTAT 45 MM HG (35-48); Arterial PO2 iSTAT 632 MM HG (80-95); Arterial Total CO2 iSTAT 27 MMO/L (23-27); Arterial pH iSTAT 7.366 (7.35-7.45)
[2022-03-21] MEDS: POTASSIUM CHLORIDE 20 MEQ TABLET PO SCH (11:27)
[2022-03-21] MEDS: SODIUM CHLORIDE 0.9% 1,000 ML IV SCH (11:38)
[2022-03-21] MEDS: LACOSAMIDE INJ 100 MG in SODIUM CHLORIDE 0.9% 50 ML IV SCH ×2 (12:00→20:29)
[2022-03-21 12:35] LABS: Basophils % 0.5 % (0.0-0.8); Eosinophils # 0.1 10*3/uL (0.0-0.87); Eosinophils % 3.7 % (0.00-10.9); Hematocrit 34.3 VOL% (42.0-52.0); Hemoglobin 11.2 GM/DL (14.0-18.0); Immature Granulocytes % 0.3 %; Immature Granulocytes Absolute 0.01 #; Lymphocytes # 0.6 10*3/uL (1.4-4.0); Lymphocytes % 15.3 % (21.2-54.2); Mean Corpuscular HGB Conc 32.7 GM/DL (32-36); Mean Corpuscular Volume 84.9 FL (87-102); Mean Platelet Volume 9.9 FL (9.6-12.0); Monocytes # 0.2 10*3/uL (0.11-0.8); Monocytes % 6.3 % (1.7-12.7); Neutrophils % 73.9 % (38.7-73.9); Platelet Count 145 T/CUMM (130-400); Red Blood Count 4.04 MC/CUMM (3.8-5.5); Red Cell Distribution Width 15.9 % (9.3-17.3); White Blood Count 3.8 T/CUMM (4-12)
[2022-03-21] MEDS: PIPERACILLIN/TAZOBACTAM 3,375 MG in SODIUM CHLORIDE 0.9% 100 ML IV SCH ×2 (12:45→22:09)
[2022-03-21 12:50] LABS: Calcium 9.7 MG/DL (8.5-10.1); Osmolality,Calculated 274.5 MOS/KG (273-304); Potassium 4.8 MMOL/L (3.5-5.1)
[2022-03-21 15:19] LABS: Calcium 9.5 MG/DL (8.5-10.1); Osmolality,Calculated 270.8 MOS/KG (273-304); Potassium 4.8 MMOL/L (3.5-5.1)
[2022-03-21] MEDS: methylPREDNISolone SOD SUC 40 MG/1 ML VIAL IV SCH (15:50)
[2022-03-21] MEDS ORDERED: FUROSEMIDE 40 MG/4 ML VIAL IV ONE (17:57)
[2022-03-21] MEDS: ATORVASTATIN 40 MG TABLET PO SCH (20:27)
[2022-03-22] MEDS: SODIUM CHLORIDE 0.9% 1,000 ML IV SCH (02:20)
[2022-03-22] MEDS: VALPROIC ACID INJ 500 MG in SODIUM CHLORIDE 0.9% 100 ML IV SCH ×2 (03:07→15:20)
[2022-03-22] MEDS: methylPREDNISolone SOD SUC 40 MG/1 ML VIAL IV SCH ×2 (03:07→15:20)
[2022-03-22] MEDS: PIPERACILLIN/TAZOBACTAM 3,375 MG in SODIUM CHLORIDE 0.9% 100 ML IV SCH ×3 (05:33→22:27)
[2022-03-22 06:16] LABS: Basophils % 0.4 % (0.0-0.8); Hematocrit 35.2 VOL% (42.0-52.0); Hemoglobin 11.5 GM/DL (14.0-18.0); Immature Granulocytes % 0.7 %; Immature Granulocytes Absolute 0.03 #; Lymphocytes # 0.5 10*3/uL (1.4-4.0); Lymphocytes % 11.3 % (21.2-54.2); Mean Corpuscular HGB Conc 32.7 GM/DL (32-36); Mean Corpuscular Volume 83.8 FL (87-102); Mean Platelet Volume 11.5 FL (9.6-12.0); Monocytes # 0.1 10*3/uL (0.11-0.8); Monocytes % 1.8 % (1.7-12.7); Neutrophils % 85.8 % (38.7-73.9); Platelet Count 169 T/CUMM (130-400); Red Cell Distribution Width 15.6 % (9.3-17.3); White Blood Count 4.5 T/CUMM (4-12)
[2022-03-22 06:34] LABS: Calcium 9.5 MG/DL (8.5-10.1); Osmolality,Calculated 273.7 MOS/KG (273-304); Potassium 4.9 MMOL/L (3.5-5.1)
[2022-03-22] MEDS ORDERED: MAGNESIUM SULF RIDER 4 GM/100 ML PREMIX IV PRN (09:07)
[2022-03-22] MEDS: THIAMINE 200 MG/2 ML VIAL IV SCH ×2 (09:37→20:20)
[2022-03-22] MEDS: MAGNESIUM CHLORIDE 64 MG TABLET PO SCH (09:37)
[2022-03-22] MEDS: CHOLECALCIFEROL 5,000 UNIT TABLET PO SCH (09:37)
[2022-03-22] MEDS: ASPIRIN EC 81 MG TABLET PO SCH (09:37)
[2022-03-22] MEDS: carvediloL 12.5 MG TABLET PO SCH ×2 (09:37→20:21)
[2022-03-22] MEDS: OMEPRAZOLE ODT 20 MG TABLET PER TUBE SCH (09:37)
[2022-03-22] MEDS: ENOXAPARIN 40 MG/0.4 ML SYRINGE SUBCUT SCH (09:37)
[2022-03-22] MEDS: LACOSAMIDE INJ 100 MG in SODIUM CHLORIDE 0.9% 50 ML IV SCH ×2 (09:37→20:47)
[2022-03-22] MEDS: amLODIPine 10 MG TABLET PO SCH (09:37)
[2022-03-22] MEDS ORDERED: PHENYTOIN INJ 1,000 MG in SODIUM CHLORIDE 0.9% 100 ML IV ONE (12:47)
[2022-03-22] MEDS ORDERED: FOSPHENYTOIN 1,000 MG.PE in SODIUM CHLORIDE 0.9% 250 ML IV ONE (14:00)
[2022-03-22] MEDS: ATORVASTATIN 40 MG TABLET PO SCH (20:21)
[2022-03-22] MEDS: PHENYTOIN INJ 100 MG in SODIUM CHLORIDE 0.9% 100 ML IV SCH (21:42)
[2022-03-23] MEDS ORDERED: PHENYTOIN 100 MG/2 ML VIAL IV SCH (01:00)
[2022-03-23] MEDS: VALPROIC ACID INJ 500 MG in SODIUM CHLORIDE 0.9% 100 ML IV SCH ×2 (03:36→15:10)
[2022-03-23] MEDS: methylPREDNISolone SOD SUC 40 MG/1 ML VIAL IV SCH ×2 (03:36→16:17)
[2022-03-23] MEDS: PIPERACILLIN/TAZOBACTAM 3,375 MG in SODIUM CHLORIDE 0.9% 100 ML IV SCH ×3 (05:10→22:09)
[2022-03-23] MEDS: PHENYTOIN INJ 100 MG in SODIUM CHLORIDE 0.9% 100 ML IV SCH ×3 (05:28→22:09)
[2022-03-23 06:11] LABS: Basophils % 0.2 % (0.0-0.8); Hemoglobin 9.9 GM/DL (14.0-18.0); Immature Granulocytes % 0.4 %; Immature Granulocytes Absolute 0.02 #; Lymphocytes # 0.7 10*3/uL (1.4-4.0); Lymphocytes % 13.3 % (21.2-54.2); Mean Corpuscular Volume 82.9 FL (87-102); Mean Platelet Volume 11.4 FL (9.6-12.0); Monocytes # 0.3 10*3/uL (0.11-0.8); Monocytes % 5.1 % (1.7-12.7); Platelet Count 179 T/CUMM (130-400); Red Blood Count 3.62 MC/CUMM (3.8-5.5); Red Cell Distribution Width 15.3 % (9.3-17.3); White Blood Count 4.9 T/CUMM (4-12)
[2022-03-23 06:26] LABS: Calcium 9.2 MG/DL (8.5-10.1); Osmolality,Calculated 280.4 MOS/KG (273-304)
[2022-03-23 06:37] LABS: Platelet Estimate Adequate; Target Cells 2+
[2022-03-23] MEDS: CHOLECALCIFEROL 5,000 UNIT TABLET PO SCH (08:36)
[2022-03-23] MEDS: OMEPRAZOLE ODT 20 MG TABLET PER TUBE SCH (08:36)
[2022-03-23] MEDS: THIAMINE 200 MG/2 ML VIAL IV SCH ×2 (08:36→20:00)
[2022-03-23] MEDS: amLODIPine 10 MG TABLET PO SCH (08:36)
[2022-03-23] MEDS: carvediloL 12.5 MG TABLET PO SCH ×2 (08:36→21:49)
[2022-03-23] MEDS: ENOXAPARIN 40 MG/0.4 ML SYRINGE SUBCUT SCH (08:36)
[2022-03-23] MEDS: ASPIRIN EC 81 MG TABLET PO SCH (08:36)
[2022-03-23] MEDS: LACOSAMIDE INJ 100 MG in SODIUM CHLORIDE 0.9% 50 ML IV SCH ×2 (09:55→20:50)
[2022-03-23] MEDS: ATORVASTATIN 40 MG TABLET PO SCH (20:00)
[2022-03-24] MEDS: methylPREDNISolone SOD SUC 40 MG/1 ML VIAL IV SCH ×2 (03:13→15:31)
[2022-03-24] MEDS: VALPROIC ACID INJ 500 MG in SODIUM CHLORIDE 0.9% 100 ML IV SCH ×2 (03:13→15:35)
[2022-03-24] MEDS: PHENYTOIN INJ 100 MG in SODIUM CHLORIDE 0.9% 100 ML IV SCH (05:08)
[2022-03-24] MEDS: PIPERACILLIN/TAZOBACTAM 3,375 MG in SODIUM CHLORIDE 0.9% 100 ML IV SCH (05:09)
[2022-03-24] MEDS: ASPIRIN EC 81 MG TABLET PO SCH (08:40)
[2022-03-24] MEDS: carvediloL 12.5 MG TABLET PO SCH ×2 (08:40→20:46)
[2022-03-24] MEDS: amLODIPine 10 MG TABLET PO SCH (08:40)
[2022-03-24] MEDS: OMEPRAZOLE ODT 20 MG TABLET PER TUBE SCH (08:40)
[2022-03-24] MEDS: THIAMINE 200 MG/2 ML VIAL IV SCH ×2 (08:40→20:46)
[2022-03-24] MEDS: ENOXAPARIN 40 MG/0.4 ML SYRINGE SUBCUT SCH (08:40)
[2022-03-24] MEDS: CHOLECALCIFEROL 5,000 UNIT TABLET PO SCH (08:41)
[2022-03-24 09:11] LABS: Basophils % 0.3 % (0.0-0.8); Hematocrit 30.9 VOL% (42.0-52.0); Hemoglobin 10.2 GM/DL (14.0-18.0); Immature Granulocytes % 1.3 %; Immature Granulocytes Absolute 0.09 #; Lymphocytes # 0.7 10*3/uL (1.4-4.0); Lymphocytes % 10.1 % (21.2-54.2); Mean Corpuscular Volume 82.6 FL (87-102); Mean Platelet Volume 11.2 FL (9.6-12.0); Monocytes # 0.3 10*3/uL (0.11-0.8); Monocytes % 4.7 % (1.7-12.7); Neutrophils % 83.6 % (38.7-73.9); Platelet Count 192 T/CUMM (130-400); Red Blood Count 3.74 MC/CUMM (3.8-5.5); Red Cell Distribution Width 15.6 % (9.3-17.3); White Blood Count 6.8 T/CUMM (4-12)
[2022-03-24 09:31] LABS: Calcium 9.6 MG/DL (8.5-10.1); Osmolality,Calculated 278.5 MOS/KG (273-304); Potassium 3.8 MMOL/L (3.5-5.1)
[2022-03-24] MEDS: LACOSAMIDE INJ 100 MG in SODIUM CHLORIDE 0.9% 50 ML IV SCH ×2 (10:15→22:25)
[2022-03-24] MEDS: CIPROFLOXACIN INJ 400 MG/200 ML PREMIX IV SCH (14:10)
[2022-03-24] MEDS: PHENYTOIN 100 MG/2 ML VIAL IV SCH (15:24)
[2022-03-24] MEDS: cloNIDine 0.2 MG/24 HR PATCH TRANSDERM SCH (16:34)
[2022-03-24] MEDS: ATORVASTATIN 40 MG TABLET PO SCH (20:46)
[2022-03-25] MEDS: PHENYTOIN INJ 100 MG in SODIUM CHLORIDE 0.9% 100 ML IV SCH ×3 (00:12→16:18)
[2022-03-25] MEDS: CIPROFLOXACIN INJ 400 MG/200 ML PREMIX IV SCH ×2 (01:32→14:07)
[2022-03-25] MEDS: PHENYTOIN 100 MG/2 ML VIAL IV SCH (03:23)
[2022-03-25] MEDS: VALPROIC ACID INJ 500 MG in SODIUM CHLORIDE 0.9% 100 ML IV SCH ×2 (03:36→16:18)
[2022-03-25] MEDS: methylPREDNISolone SOD SUC 40 MG/1 ML VIAL IV SCH ×2 (03:37→16:18)
[2022-03-25] MEDS: hydrALAZINE 20 MG/1 ML VIAL IV PRN (03:45)
[2022-03-25] MEDS: LORazepam 2 MG/1 ML VIAL IV PRN (05:08)
[2022-03-25 05:47] LABS: Basophils % 0.7 % (0.0-0.8); Eosinophils % 0.2 % (0.00-10.9); Hematocrit 36.3 VOL% (42.0-52.0); Hemoglobin 12.1 GM/DL (14.0-18.0); Immature Granulocytes % 1.1 %; Immature Granulocytes Absolute 0.06 #; Lymphocytes % 17.8 % (21.2-54.2); Mean Corpuscular HGB Conc 33.3 GM/DL (32-36); Mean Corpuscular Volume 83.3 FL (87-102); Mean Platelet Volume 11.1 FL (9.6-12.0); Monocytes # 0.7 10*3/uL (0.11-0.8); Monocytes % 12.4 % (1.7-12.7); Neutrophils % 67.8 % (38.7-73.9); Platelet Count 212 T/CUMM (130-400); Red Blood Count 4.36 MC/CUMM (3.8-5.5); Red Cell Distribution Width 15.3 % (9.3-17.3); White Blood Count 5.6 T/CUMM (4-12)
[2022-03-25 06:01] LABS: Calcium 10.3 MG/DL (8.5-10.1); Osmolality,Calculated 277.4 MOS/KG (273-304); Potassium 3.4 MMOL/L (3.5-5.1)
[2022-03-25] MEDS ORDERED: MAGNESIUM SULF RIDER 4 GM/100 ML PREMIX IV ONE (09:04)
[2022-03-25] MEDS: ENOXAPARIN 40 MG/0.4 ML SYRINGE SUBCUT SCH (09:27)
[2022-03-25] MEDS: THIAMINE 200 MG/2 ML VIAL IV SCH ×2 (09:27→22:23)
[2022-03-25] MEDS: carvediloL 12.5 MG TABLET PO SCH ×2 (09:27→22:00)
[2022-03-25] MEDS: OMEPRAZOLE ODT 20 MG TABLET PER TUBE SCH (09:28)
[2022-03-25] MEDS: amLODIPine 10 MG TABLET PO SCH (09:28)
[2022-03-25] MEDS: CHOLECALCIFEROL 5,000 UNIT TABLET PO SCH (09:28)
[2022-03-25] MEDS: ASPIRIN CHEW 81 MG TABLET PO SCH (09:32)
[2022-03-25] MEDS: LACOSAMIDE INJ 100 MG in SODIUM CHLORIDE 0.9% 50 ML IV SCH ×2 (10:23→22:00)
[2022-03-25 11:46] LABS: Levetiracetam (Keppra) 56.6 mcg/mL
[2022-03-25] MEDS: ATORVASTATIN 40 MG TABLET PO SCH (22:00)
[2022-03-26] MEDS: PHENYTOIN INJ 100 MG in SODIUM CHLORIDE 0.9% 100 ML IV SCH ×3 (02:01→17:23)
[2022-03-26] MEDS: CIPROFLOXACIN INJ 400 MG/200 ML PREMIX IV SCH (02:02)
[2022-03-26] MEDS: VALPROIC ACID INJ 500 MG in SODIUM CHLORIDE 0.9% 100 ML IV SCH ×2 (03:00→14:57)
[2022-03-26 05:57] LABS: Basophils % 0.9 % (0.0-0.8); Eosinophils % 0.2 % (0.00-10.9); Hematocrit 36.2 VOL% (42.0-52.0); Hemoglobin 12.1 GM/DL (14.0-18.0); Immature Granulocytes % 1.1 %; Immature Granulocytes Absolute 0.05 #; Lymphocytes # 1.7 10*3/uL (1.4-4.0); Lymphocytes % 37.7 % (21.2-54.2); Mean Corpuscular HGB Conc 33.4 GM/DL (32-36); Mean Corpuscular Volume 83.2 FL (87-102); Monocytes # 0.6 10*3/uL (0.11-0.8); Monocytes % 12.4 % (1.7-12.7); Neutrophils % 47.7 % (38.7-73.9); Platelet Count 209 T/CUMM (130-400); Red Blood Count 4.35 MC/CUMM (3.8-5.5); Red Cell Distribution Width 15.5 % (9.3-17.3); White Blood Count 4.6 T/CUMM (4-12)
[2022-03-26] MEDS: methylPREDNISolone SOD SUC 40 MG/1 ML VIAL IV SCH ×2 (06:14→15:00)
[2022-03-26 06:37] LABS: Calcium 9.5 MG/DL (8.5-10.1); Osmolality,Calculated 273.7 MOS/KG (273-304); Potassium 3.2 MMOL/L (3.5-5.1)
[2022-03-26] MEDS ORDERED: POTASSIUM CHLORIDE 20 MEQ TABLET PO ONE (08:30)
[2022-03-26] MEDS: LACOSAMIDE INJ 100 MG in SODIUM CHLORIDE 0.9% 50 ML IV SCH ×2 (08:50→21:45)
[2022-03-26] MEDS: THIAMINE 200 MG/2 ML VIAL IV SCH ×2 (09:23→21:44)
[2022-03-26] MEDS: POTASSIUM CHLORIDE RIDER 10 MEQ/100 ML PREMIX IV PRN ×4 (09:23→13:38)
[2022-03-26] MEDS: ENOXAPARIN 40 MG/0.4 ML SYRINGE SUBCUT SCH (09:25)
[2022-03-26] MEDS: amLODIPine 10 MG TABLET PO SCH (09:25)
[2022-03-26] MEDS: CHOLECALCIFEROL 5,000 UNIT TABLET PO SCH (09:25)
[2022-03-26] MEDS: ASPIRIN CHEW 81 MG TABLET PO SCH (09:25)
[2022-03-26] MEDS: OMEPRAZOLE ODT 20 MG TABLET PER TUBE SCH (09:25)
[2022-03-26] MEDS: carvediloL 12.5 MG TABLET PO SCH ×2 (09:27→17:25)
[2022-03-26] MEDS: hydrALAZINE 20 MG/1 ML VIAL IV PRN (12:50)
[2022-03-26] MEDS: ATORVASTATIN 40 MG TABLET PO SCH (22:12)
[2022-03-27] MEDS: PHENYTOIN INJ 100 MG in SODIUM CHLORIDE 0.9% 100 ML IV SCH ×3 (02:05→16:59)
[2022-03-27] MEDS: VALPROIC ACID INJ 500 MG in SODIUM CHLORIDE 0.9% 100 ML IV SCH ×2 (03:43→15:06)
[2022-03-27] MEDS: methylPREDNISolone SOD SUC 40 MG/1 ML VIAL IV SCH ×2 (04:08→15:06)
[2022-03-27] MEDS: hydrALAZINE 20 MG/1 ML VIAL IV PRN ×3 (04:09→17:20)
[2022-03-27 06:25] LABS: Basophils % 0.3 % (0.0-0.8); Eosinophils % 0.2 % (0.00-10.9); Hemoglobin 12.2 GM/DL (14.0-18.0); Immature Granulocytes % 1.4 %; Immature Granulocytes Absolute 0.09 #; Lymphocytes # 1.2 10*3/uL (1.4-4.0); Lymphocytes % 17.6 % (21.2-54.2); Mean Corpuscular Volume 81.9 FL (87-102); Mean Platelet Volume 10.3 FL (9.6-12.0); Monocytes # 0.7 10*3/uL (0.11-0.8); Monocytes % 10.4 % (1.7-12.7); Neutrophils % 70.1 % (38.7-73.9); Platelet Count 232 T/CUMM (130-400); Red Blood Count 4.52 MC/CUMM (3.8-5.5); Red Cell Distribution Width 15.6 % (9.3-17.3); White Blood Count 6.5 T/CUMM (4-12)
[2022-03-27 06:52] LABS: Osmolality,Calculated 276.5 MOS/KG (273-304); Potassium 3.6 MMOL/L (3.5-5.1)
[2022-03-27] MEDS: LACOSAMIDE IV SCH ×2 (08:45→21:35)
[2022-03-27] MEDS: SODIUM CHLORIDE 0.9% IV SCH ×2 (08:45→21:35)
[2022-03-27] MEDS: ASPIRIN CHEW 81 MG TABLET PO SCH (08:46)
[2022-03-27] MEDS: carvediloL 12.5 MG TABLET PO SCH ×2 (08:46→16:59)
[2022-03-27] MEDS: CHOLECALCIFEROL 5,000 UNIT TABLET PO SCH (08:47)
[2022-03-27] MEDS: OMEPRAZOLE ODT 20 MG TABLET PER TUBE SCH (08:47)
[2022-03-27] MEDS: amLODIPine 10 MG TABLET PO SCH (08:47)
[2022-03-27] MEDS: THIAMINE 200 MG/2 ML VIAL IV SCH ×2 (09:01→21:12)
[2022-03-27] MEDS ORDERED: LIDOCAINE 2% 5 ML VIAL ONE (11:10)
[2022-03-27] MEDS ORDERED: GLYCOPYRROLATE 0.4 MG/2 ML VIAL ONE (11:10)
[2022-03-27] MEDS ORDERED: propofoL 200 MG/20 ML VIAL IV ONE (11:10)
[2022-03-27] MEDS ORDERED: hydrALAZINE 20 MG/1 ML VIAL ONE (11:53)
[2022-03-27] MEDS ORDERED: amLODIPine 10 MG TABLET PO ONE (12:30)
[2022-03-27] MEDS: POTASSIUM CHLORIDE RIDER 10 MEQ/100 ML PREMIX IV PRN ×2 (12:40→13:51)
[2022-03-27] MEDS: MAGNESIUM SULF RIDER 2 GM/50 ML PREMIX IV PRN (15:06)
[2022-03-27] MEDS: LORazepam 2 MG/1 ML VIAL IV PRN (16:16)
[2022-03-27] MEDS: ATORVASTATIN 40 MG TABLET PO SCH (21:17)
[2022-03-28] MEDS: PHENYTOIN INJ 100 MG in SODIUM CHLORIDE 0.9% 100 ML IV SCH ×2 (00:52→09:10)
[2022-03-28] MEDS: methylPREDNISolone SOD SUC 40 MG/1 ML VIAL IV SCH (03:15)
[2022-03-28] MEDS: VALPROIC ACID INJ 500 MG in SODIUM CHLORIDE 0.9% 100 ML IV SCH (03:17)
[2022-03-28] MEDS: hydrALAZINE 20 MG/1 ML VIAL IV PRN ×2 (04:00→21:07)
[2022-03-28 05:23] LABS: Basophils % 0.5 % (0.0-0.8); Eosinophils # 0.1 10*3/uL (0.0-0.87); Eosinophils % 0.9 % (0.00-10.9); Hematocrit 37.4 VOL% (42.0-52.0); Hemoglobin 12.4 GM/DL (14.0-18.0); Immature Granulocytes % 0.9 %; Immature Granulocytes Absolute 0.06 #; Lymphocytes # 1.4 10*3/uL (1.4-4.0); Lymphocytes % 22.1 % (21.2-54.2); Mean Corpuscular HGB Conc 33.2 GM/DL (32-36); Mean Corpuscular Volume 81.8 FL (87-102); Mean Platelet Volume 11.4 FL (9.6-12.0); Monocytes # 0.6 10*3/uL (0.11-0.8); Monocytes % 9.2 % (1.7-12.7); Neutrophils % 66.4 % (38.7-73.9); Platelet Count 271 T/CUMM (130-400); Red Blood Count 4.57 MC/CUMM (3.8-5.5); Red Cell Distribution Width 15.3 % (9.3-17.3); White Blood Count 6.5 T/CUMM (4-12)
[2022-03-28 05:52] LABS: Calcium 10.1 MG/DL (8.5-10.1); Osmolality,Calculated 278.4 MOS/KG (273-304); Potassium 3.8 MMOL/L (3.5-5.1)
[2022-03-28] MEDS: ASPIRIN CHEW 81 MG TABLET PO SCH (08:32)
[2022-03-28] MEDS: OMEPRAZOLE ODT 20 MG TABLET PER TUBE SCH (08:32)
[2022-03-28] MEDS: carvediloL 12.5 MG TABLET PO SCH ×2 (08:33→17:02)
[2022-03-28] MEDS: amLODIPine 10 MG TABLET PO SCH (08:33)
[2022-03-28] MEDS: THIAMINE 200 MG/2 ML VIAL IV SCH ×2 (08:33→21:09)
[2022-03-28] MEDS: CHOLECALCIFEROL 5,000 UNIT TABLET PO SCH (08:33)
[2022-03-28] MEDS: lisinopriL 10 MG TABLET PO SCH (08:33)
[2022-03-28] MEDS: predniSONE 20 MG TABLET PO SCH (08:38)
[2022-03-28] MEDS: POTASSIUM CHLORIDE RIDER 10 MEQ/100 ML PREMIX IV PRN (09:38)
[2022-03-28] MEDS: LACOSAMIDE IV SCH ×2 (10:33→21:17)
[2022-03-28] MEDS: SODIUM CHLORIDE 0.9% IV SCH ×2 (10:33→21:17)
[2022-03-28] MEDS: PHENYTOIN 100 MG/4 ML UDCUP PEG SCH ×2 (15:06→21:09)
[2022-03-28] MEDS: levETIRAcetam LIQUID 100 MG/ML 30 ML/BOTTLE PO SCH (21:09)
[2022-03-28] MEDS: VALPROIC ACID 250 MG/5 ML UDCUP PO SCH (21:09)
[2022-03-28] MEDS: ATORVASTATIN 40 MG TABLET PO SCH (21:10)
[2022-03-29 06:18] LABS: Basophils % 0.7 % (0.0-0.8); Eosinophils % 0.7 % (0.00-10.9); Hemoglobin 12.6 GM/DL (14.0-18.0); Immature Granulocytes % 0.5 %; Immature Granulocytes Absolute 0.03 #; Lymphocytes # 1.7 10*3/uL (1.4-4.0); Lymphocytes % 27.1 % (21.2-54.2); Mean Corpuscular HGB Conc 33.2 GM/DL (32-36); Mean Corpuscular Volume 83.2 FL (87-102); Mean Platelet Volume 10.9 FL (9.6-12.0); Monocytes # 0.8 10*3/uL (0.11-0.8); Platelet Count 231 T/CUMM (130-400); Red Blood Count 4.57 MC/CUMM (3.8-5.5); Red Cell Distribution Width 15.4 % (9.3-17.3); White Blood Count 6.1 T/CUMM (4-12)
[2022-03-29 06:43] LABS: Calcium 9.7 MG/DL (8.5-10.1); Osmolality,Calculated 274.7 MOS/KG (273-304); Potassium 3.5 MMOL/L (3.5-5.1)
[2022-03-29] MEDS: OMEPRAZOLE ODT 20 MG TABLET PER TUBE SCH (09:01)
[2022-03-29] MEDS: carvediloL 12.5 MG TABLET PO SCH ×2 (09:01→17:30)
[2022-03-29] MEDS: predniSONE 20 MG TABLET PO SCH (09:01)
[2022-03-29] MEDS: lisinopriL 10 MG TABLET PO SCH (09:01)
[2022-03-29] MEDS: amLODIPine 10 MG TABLET PO SCH (09:01)
[2022-03-29] MEDS: ASPIRIN CHEW 81 MG TABLET PO SCH (09:01)
[2022-03-29] MEDS: VALPROIC ACID 250 MG/5 ML UDCUP PO SCH ×2 (09:02→21:19)
[2022-03-29] MEDS: PHENYTOIN 100 MG/4 ML UDCUP PEG SCH ×3 (09:02→21:20)
[2022-03-29] MEDS: CHOLECALCIFEROL 5,000 UNIT TABLET PO SCH (09:02)
[2022-03-29] MEDS: MAGNESIUM SULF RIDER 2 GM/50 ML PREMIX IV PRN (09:09)
[2022-03-29] MEDS: THIAMINE 200 MG/2 ML VIAL IV SCH (09:09)
[2022-03-29] MEDS: LACOSAMIDE IV SCH ×2 (09:11→21:21)
[2022-03-29] MEDS: levETIRAcetam LIQUID 100 MG/ML 30 ML/BOTTLE PO SCH ×2 (09:11→21:20)
[2022-03-29] MEDS: SODIUM CHLORIDE 0.9% IV SCH ×2 (09:11→21:21)
[2022-03-29] MEDS: ATORVASTATIN 40 MG TABLET PO SCH (21:21)
[2022-03-30 06:20] LABS: Basophils # 0.1 10*3/uL (0.0-0.2); Basophils % 0.6 % (0.0-0.8); Eosinophils # 0.1 10*3/uL (0.0-0.87); Eosinophils % 0.7 % (0.00-10.9); Hematocrit 36.2 VOL% (42.0-52.0); Hemoglobin 11.8 GM/DL (14.0-18.0); Immature Granulocytes % 0.5 %; Immature Granulocytes Absolute 0.04 #; Lymphocytes # 1.7 10*3/uL (1.4-4.0); Lymphocytes % 19.2 % (21.2-54.2); Mean Corpuscular HGB Conc 32.6 GM/DL (32-36); Mean Corpuscular Volume 82.6 FL (87-102); Monocytes # 1.2 10*3/uL (0.11-0.8); Platelet Count 237 T/CUMM (130-400); Red Blood Count 4.38 MC/CUMM (3.8-5.5); Red Cell Distribution Width 15.4 % (9.3-17.3); White Blood Count 8.8 T/CUMM (4-12)
[2022-03-30 06:33] LABS: Calcium 9.9 MG/DL (8.5-10.1); Osmolality,Calculated 271.8 MOS/KG (273-304); Potassium 3.3 MMOL/L (3.5-5.1)
[2022-03-30] MEDS ORDERED: POTASSIUM CHLORIDE 20 MEQ TABLET PO ONE ×2 (08:26→11:00)
[2022-03-30] MEDS: LACOSAMIDE IV SCH ×2 (08:40→21:41)
[2022-03-30] MEDS: OMEPRAZOLE ODT 20 MG TABLET PER TUBE SCH (08:40)
[2022-03-30] MEDS: SODIUM CHLORIDE 0.9% IV SCH ×2 (08:40→21:41)
[2022-03-30] MEDS: PHENYTOIN 100 MG/4 ML UDCUP PEG SCH ×3 (08:40→21:41)
[2022-03-30] MEDS: amLODIPine 10 MG TABLET PO SCH (08:40)
[2022-03-30] MEDS: VALPROIC ACID 250 MG/5 ML UDCUP PO SCH ×2 (08:40→21:41)
[2022-03-30] MEDS: ASPIRIN CHEW 81 MG TABLET PO SCH (08:40)
[2022-03-30] MEDS: CHOLECALCIFEROL 5,000 UNIT TABLET PO SCH (08:41)
[2022-03-30] MEDS: ENOXAPARIN 40 MG/0.4 ML SYRINGE SUBCUT SCH (08:41)
[2022-03-30] MEDS: lisinopriL 10 MG TABLET PO SCH (08:41)
[2022-03-30] MEDS: predniSONE 20 MG TABLET PO SCH (08:41)
[2022-03-30] MEDS: carvediloL 12.5 MG TABLET PO SCH ×2 (08:41→18:06)
[2022-03-30] MEDS: levETIRAcetam LIQUID 100 MG/ML 30 ML/BOTTLE PO SCH ×2 (08:41→21:42)
[2022-03-30] MEDS: ATORVASTATIN 40 MG TABLET PO SCH (21:41)
[2022-03-31 05:52] LABS: Basophils # 0.1 10*3/uL (0.0-0.2); Basophils % 0.9 % (0.0-0.8); Eosinophils # 0.1 10*3/uL (0.0-0.87); Eosinophils % 1.1 % (0.00-10.9); Hematocrit 35.3 VOL% (42.0-52.0); Hemoglobin 11.4 GM/DL (14.0-18.0); Immature Granulocytes % 0.5 %; Immature Granulocytes Absolute 0.03 #; Lymphocytes # 1.7 10*3/uL (1.4-4.0); Lymphocytes % 26.1 % (21.2-54.2); Mean Corpuscular HGB Conc 32.3 GM/DL (32-36); Mean Corpuscular Volume 83.1 FL (87-102); Mean Platelet Volume 11.5 FL (9.6-12.0); Monocytes # 0.8 10*3/uL (0.11-0.8); Monocytes % 11.7 % (1.7-12.7); Neutrophils % 59.7 % (38.7-73.9); Platelet Count 242 T/CUMM (130-400); Red Blood Count 4.25 MC/CUMM (3.8-5.5); Red Cell Distribution Width 15.5 % (9.3-17.3); White Blood Count 6.4 T/CUMM (4-12)
[2022-03-31 06:06] LABS: Calcium 9.9 MG/DL (8.5-10.1); Osmolality,Calculated 275.5 MOS/KG (273-304); Potassium 3.6 MMOL/L (3.5-5.1)
[2022-03-31] MEDS: ENOXAPARIN 40 MG/0.4 ML SYRINGE SUBCUT SCH (09:55)
[2022-03-31] MEDS: LACOSAMIDE IV SCH ×2 (09:55→22:15)
[2022-03-31] MEDS: lisinopriL 10 MG TABLET PO SCH (09:55)
[2022-03-31] MEDS: cloNIDine 0.2 MG/24 HR PATCH TRANSDERM SCH (09:55)
[2022-03-31] MEDS: amLODIPine 10 MG TABLET PO SCH (09:55)
[2022-03-31] MEDS: SODIUM CHLORIDE 0.9% IV SCH ×2 (09:55→22:15)
[2022-03-31] MEDS: ASPIRIN CHEW 81 MG TABLET PO SCH (09:55)
[2022-03-31] MEDS: CHOLECALCIFEROL 5,000 UNIT TABLET PO SCH (09:55)
[2022-03-31] MEDS: carvediloL 12.5 MG TABLET PO SCH ×2 (09:55→16:00)
[2022-03-31] MEDS: predniSONE 20 MG TABLET PO SCH (09:55)
[2022-03-31] MEDS: levETIRAcetam LIQUID 100 MG/ML 30 ML/BOTTLE PO SCH ×2 (09:55→22:16)
[2022-03-31] MEDS: OMEPRAZOLE ODT 20 MG TABLET PER TUBE SCH (09:55)
[2022-03-31] MEDS: VALPROIC ACID 250 MG/5 ML UDCUP PO SCH ×2 (09:55→22:05)
[2022-03-31] MEDS: PHENYTOIN 100 MG/4 ML UDCUP PEG SCH ×3 (09:55→22:05)
[2022-03-31] MEDS: ATORVASTATIN 40 MG TABLET PO SCH (22:05)
[2022-04-01 06:41] LABS: Basophils # 0.1 10*3/uL (0.0-0.2); Eosinophils # 0.1 10*3/uL (0.0-0.87); Eosinophils % 1.3 % (0.00-10.9); Hematocrit 33.1 VOL% (42.0-52.0); Hemoglobin 10.9 GM/DL (14.0-18.0); Immature Granulocytes % 0.6 %; Immature Granulocytes Absolute 0.04 #; Lymphocytes # 1.6 10*3/uL (1.4-4.0); Lymphocytes % 26.4 % (21.2-54.2); Mean Corpuscular HGB Conc 32.9 GM/DL (32-36); Mean Corpuscular Volume 82.3 FL (87-102); Mean Platelet Volume 11.1 FL (9.6-12.0); Monocytes # 0.7 10*3/uL (0.11-0.8); Monocytes % 11.9 % (1.7-12.7); Neutrophils % 58.8 % (38.7-73.9); Platelet Count 214 T/CUMM (130-400); Red Blood Count 4.02 MC/CUMM (3.8-5.5); Red Cell Distribution Width 15.4 % (9.3-17.3); White Blood Count 6.2 T/CUMM (4-12)
[2022-04-01 06:55] LABS: Calcium 9.2 MG/DL (8.5-10.1); Osmolality,Calculated 281.3 MOS/KG (273-304); Potassium 3.7 MMOL/L (3.5-5.1)
[2022-04-01] MEDS ORDERED: MAGNESIUM SULF RIDER 2 GM/50 ML PREMIX IV ONE ×2 (08:00→09:06)
[2022-04-01] MEDS: LACOSAMIDE IV SCH ×2 (09:07→09:15)
[2022-04-01] MEDS: predniSONE 20 MG TABLET PO SCH (09:07)
[2022-04-01] MEDS: SODIUM CHLORIDE 0.9% IV SCH ×2 (09:07→09:15)
[2022-04-01] MEDS ORDERED: SODIUM CHLORIDE 0.9% IV SCH (09:30)
[2022-04-01] MEDS ORDERED: LACOSAMIDE IV SCH (09:30)
[2022-04-01] MEDS: ENOXAPARIN 40 MG/0.4 ML SYRINGE SUBCUT SCH (09:41)
[2022-04-01] MEDS: OMEPRAZOLE ODT 20 MG TABLET PER TUBE SCH (09:48)
[2022-04-01] MEDS: lisinopriL 10 MG TABLET PO SCH (09:48)
[2022-04-01] MEDS: amLODIPine 10 MG TABLET PO SCH (09:48)
[2022-04-01] MEDS: CHOLECALCIFEROL 5,000 UNIT TABLET PO SCH (09:48)
[2022-04-01] MEDS: carvediloL 12.5 MG TABLET PO SCH ×2 (09:48→16:12)
[2022-04-01] MEDS: PHENYTOIN 100 MG/4 ML UDCUP PEG SCH ×3 (09:48→21:28)
[2022-04-01] MEDS: ASPIRIN CHEW 81 MG TABLET PO SCH (09:48)
[2022-04-01] MEDS: VALPROIC ACID 250 MG/5 ML UDCUP PO SCH ×2 (09:48→21:28)
[2022-04-01] MEDS: levETIRAcetam LIQUID 100 MG/ML 30 ML/BOTTLE PO SCH ×2 (09:50→21:28)
[2022-04-01] MEDS ORDERED: LACOSAMIDE 50 MG TABLET PO SCH (21:00)
[2022-04-01] MEDS: LACOSAMIDE 50 MG TABLET PEG SCH (21:28)
[2022-04-01] MEDS: ATORVASTATIN 40 MG TABLET PO SCH (21:28)
[2022-04-02 05:33] LABS: Basophils # 0.1 10*3/uL (0.0-0.2); Basophils % 1.2 % (0.0-0.8); Eosinophils # 0.1 10*3/uL (0.0-0.87); Eosinophils % 2.6 % (0.00-10.9); Hematocrit 34.1 VOL% (42.0-52.0); Hemoglobin 11.1 GM/DL (14.0-18.0); Immature Granulocytes % 0.6 %; Immature Granulocytes Absolute 0.03 #; Lymphocytes # 1.4 10*3/uL (1.4-4.0); Lymphocytes % 27.9 % (21.2-54.2); Mean Corpuscular HGB Conc 32.6 GM/DL (32-36); Mean Corpuscular Volume 84.8 FL (87-102); Mean Platelet Volume 11.2 FL (9.6-12.0); Monocytes # 0.6 10*3/uL (0.11-0.8); Monocytes % 12.2 % (1.7-12.7); Neutrophils % 55.5 % (38.7-73.9); Platelet Count 242 T/CUMM (130-400); Red Blood Count 4.02 MC/CUMM (3.8-5.5); Red Cell Distribution Width 15.5 % (9.3-17.3); White Blood Count 5.1 T/CUMM (4-12)
[2022-04-02 06:00] LABS: Calcium 9.3 MG/DL (8.5-10.1); Osmolality,Calculated 277.5 MOS/KG (273-304)
[2022-04-02 06:13] LABS: Phosphorous 2.6 MG/DL (2.5-4.9)
[2022-04-02] MEDS: PHENYTOIN 100 MG/4 ML UDCUP PEG SCH ×3 (08:25→22:16)
[2022-04-02] MEDS: lisinopriL 10 MG TABLET PO SCH (08:25)
[2022-04-02] MEDS: carvediloL 12.5 MG TABLET PO SCH ×2 (08:25→16:13)
[2022-04-02] MEDS: VALPROIC ACID 250 MG/5 ML UDCUP PO SCH ×2 (08:25→22:16)
[2022-04-02] MEDS: LACOSAMIDE 50 MG TABLET PEG SCH ×2 (08:25→22:18)
[2022-04-02] MEDS: ASPIRIN CHEW 81 MG TABLET PO SCH (08:25)
[2022-04-02] MEDS: ENOXAPARIN 40 MG/0.4 ML SYRINGE SUBCUT SCH (08:26)
[2022-04-02] MEDS: amLODIPine 10 MG TABLET PO SCH (08:26)
[2022-04-02] MEDS: CHOLECALCIFEROL 5,000 UNIT TABLET PO SCH (08:26)
[2022-04-02] MEDS: OMEPRAZOLE ODT 20 MG TABLET PER TUBE SCH (08:26)
[2022-04-02] MEDS: predniSONE 20 MG TABLET PO SCH (08:26)
[2022-04-02] MEDS: levETIRAcetam LIQUID 100 MG/ML 30 ML/BOTTLE PO SCH ×2 (10:00→22:16)
[2022-04-02] MEDS: ATORVASTATIN 40 MG TABLET PO SCH (22:20)
[2022-04-03 05:28] LABS: Basophils # 0.1 10*3/uL (0.0-0.2); Eosinophils # 0.1 10*3/uL (0.0-0.87); Eosinophils % 2.4 % (0.00-10.9); Hemoglobin 10.4 GM/DL (14.0-18.0); Immature Granulocytes % 0.6 %; Immature Granulocytes Absolute 0.03 #; Lymphocytes # 1.3 10*3/uL (1.4-4.0); Lymphocytes % 26.1 % (21.2-54.2); Mean Corpuscular HGB Conc 32.5 GM/DL (32-36); Mean Corpuscular Volume 82.9 FL (87-102); Monocytes # 0.6 10*3/uL (0.11-0.8); Monocytes % 12.5 % (1.7-12.7); Neutrophils % 57.4 % (38.7-73.9); Platelet Count 219 T/CUMM (130-400); Red Blood Count 3.86 MC/CUMM (3.8-5.5); Red Cell Distribution Width 15.3 % (9.3-17.3)
[2022-04-03 05:52] LABS: Calcium 9.1 MG/DL (8.5-10.1); Osmolality,Calculated 278.7 MOS/KG (273-304); Potassium 3.6 MMOL/L (3.5-5.1)
[2022-04-03] MEDS: LACOSAMIDE 50 MG TABLET PEG SCH ×2 (09:30→21:44)
[2022-04-03] MEDS: predniSONE 20 MG TABLET PO SCH (09:30)
[2022-04-03] MEDS: amLODIPine 10 MG TABLET PO SCH (09:30)
[2022-04-03] MEDS: lisinopriL 10 MG TABLET PO SCH (09:30)
[2022-04-03] MEDS: CHOLECALCIFEROL 5,000 UNIT TABLET PO SCH (09:30)
[2022-04-03] MEDS: carvediloL 12.5 MG TABLET PO SCH ×2 (09:30→17:36)
[2022-04-03] MEDS: OMEPRAZOLE ODT 20 MG TABLET PER TUBE SCH (09:30)
[2022-04-03] MEDS: ASPIRIN CHEW 81 MG TABLET PO SCH (09:30)
[2022-04-03] MEDS: VALPROIC ACID 250 MG/5 ML UDCUP PO SCH ×2 (09:31→21:44)
[2022-04-03] MEDS: PHENYTOIN 100 MG/4 ML UDCUP PEG SCH ×3 (09:31→21:44)
[2022-04-03] MEDS: ENOXAPARIN 40 MG/0.4 ML SYRINGE SUBCUT SCH (09:34)
[2022-04-03] MEDS: levETIRAcetam LIQUID 100 MG/ML 30 ML/BOTTLE PO SCH ×2 (09:42→21:44)
[2022-04-03] MEDS: ATORVASTATIN 40 MG TABLET PO SCH (21:44)
[2022-04-04 05:42] LABS: Eosinophils # 0.1 10*3/uL (0.0-0.87); Eosinophils % 3.2 % (0.00-10.9); Hematocrit 29.3 VOL% (42.0-52.0); Hemoglobin 9.8 GM/DL (14.0-18.0); Immature Granulocytes % 0.5 %; Immature Granulocytes Absolute 0.02 #; Mean Corpuscular HGB Conc 33.4 GM/DL (32-36); Mean Corpuscular Volume 83.2 FL (87-102); Mean Platelet Volume 11.2 FL (9.6-12.0); Monocytes # 0.5 10*3/uL (0.11-0.8); Monocytes % 12.1 % (1.7-12.7); Neutrophils % 59.2 % (38.7-73.9); Platelet Count 228 T/CUMM (130-400); Red Blood Count 3.52 MC/CUMM (3.8-5.5); Red Cell Distribution Width 15.3 % (9.3-17.3)
[2022-04-04 05:57] LABS: Calcium 9.2 MG/DL (8.5-10.1); Osmolality,Calculated 277.7 MOS/KG (273-304); Potassium 3.8 MMOL/L (3.5-5.1)
[2022-04-04] MEDS: PHENYTOIN 100 MG/4 ML UDCUP PEG SCH ×3 (08:23→21:06)
[2022-04-04] MEDS: ENOXAPARIN 40 MG/0.4 ML SYRINGE SUBCUT SCH (08:23)
[2022-04-04] MEDS: VALPROIC ACID 250 MG/5 ML UDCUP PO SCH ×2 (08:23→21:06)
[2022-04-04] MEDS: OMEPRAZOLE ODT 20 MG TABLET PER TUBE SCH (08:23)
[2022-04-04] MEDS: ASPIRIN CHEW 81 MG TABLET PO SCH (08:24)
[2022-04-04] MEDS: lisinopriL 10 MG TABLET PO SCH (08:24)
[2022-04-04] MEDS: amLODIPine 10 MG TABLET PO SCH (08:24)
[2022-04-04] MEDS: predniSONE 20 MG TABLET PO SCH (08:24)
[2022-04-04] MEDS: CHOLECALCIFEROL 5,000 UNIT TABLET PO SCH (08:24)
[2022-04-04] MEDS: LACOSAMIDE 50 MG TABLET PEG SCH ×2 (08:24→21:06)
[2022-04-04] MEDS: carvediloL 12.5 MG TABLET PO SCH ×2 (08:24→16:10)
[2022-04-04] MEDS: levETIRAcetam LIQUID 100 MG/ML 30 ML/BOTTLE PO SCH ×2 (08:24→21:06)
[2022-04-04] MEDS: ATORVASTATIN 40 MG TABLET PO SCH (21:07)
[2022-04-04] MEDS: MAGNESIUM OXIDE 400 MG TABLET PER TUBE SCH (21:07)
[2022-04-05] MEDS: VALPROIC ACID 250 MG/5 ML UDCUP PO SCH ×2 (10:25→21:05)
[2022-04-05] MEDS: ENOXAPARIN 40 MG/0.4 ML SYRINGE SUBCUT SCH (10:25)
[2022-04-05] MEDS: PHENYTOIN 100 MG/4 ML UDCUP PEG SCH ×3 (10:25→21:04)
[2022-04-05] MEDS: LACOSAMIDE 50 MG TABLET PEG SCH ×2 (10:25→21:04)
[2022-04-05] MEDS: ASPIRIN CHEW 81 MG TABLET PO SCH (10:25)
[2022-04-05] MEDS: lisinopriL 10 MG TABLET PO SCH (10:26)
[2022-04-05] MEDS: CHOLECALCIFEROL 5,000 UNIT TABLET PO SCH (10:26)
[2022-04-05] MEDS: MAGNESIUM OXIDE 400 MG TABLET PER TUBE SCH ×3 (10:26→21:11)
[2022-04-05] MEDS: OMEPRAZOLE ODT 20 MG TABLET PER TUBE SCH (10:26)
[2022-04-05] MEDS: predniSONE 10 MG TABLET PO SCH (10:26)
[2022-04-05] MEDS: amLODIPine 10 MG TABLET PO SCH (10:26)
[2022-04-05] MEDS: carvediloL 12.5 MG TABLET PO SCH ×2 (10:26→16:27)
[2022-04-05] MEDS: levETIRAcetam LIQUID 100 MG/ML 30 ML/BOTTLE PO SCH ×2 (10:26→21:09)
[2022-04-05] MEDS: LORazepam 2 MG/1 ML VIAL IV PRN (16:27)
[2022-04-05] MEDS: ATORVASTATIN 40 MG TABLET PO SCH (21:05)
[2022-04-06] MEDS: LORazepam 2 MG/1 ML VIAL IV PRN (03:15)
[2022-04-06 06:32] LABS: Basophils % 0.6 % (0.0-0.8); Eosinophils # 0.2 10*3/uL (0.0-0.87); Eosinophils % 2.7 % (0.00-10.9); Hematocrit 34.3 VOL% (42.0-52.0); Hemoglobin 11.2 GM/DL (14.0-18.0); Immature Granulocytes % 0.3 %; Immature Granulocytes Absolute 0.02 #; Lymphocytes # 1.2 10*3/uL (1.4-4.0); Lymphocytes % 18.9 % (21.2-54.2); Mean Corpuscular HGB Conc 32.7 GM/DL (32-36); Mean Corpuscular Volume 84.5 FL (87-102); Mean Platelet Volume 11.1 FL (9.6-12.0); Monocytes # 0.5 10*3/uL (0.11-0.8); Neutrophils % 70.5 % (38.7-73.9); Platelet Count 254 T/CUMM (130-400); Red Blood Count 4.06 MC/CUMM (3.8-5.5); Red Cell Distribution Width 15.6 % (9.3-17.3); White Blood Count 6.6 T/CUMM (4-12)
[2022-04-06 06:52] LABS: Calcium 9.7 MG/DL (8.5-10.1); Osmolality,Calculated 277.5 MOS/KG (273-304); Potassium 4.1 MMOL/L (3.5-5.1)
[2022-04-06] MEDS: LACOSAMIDE 50 MG TABLET PEG SCH ×2 (10:10→21:40)
[2022-04-06] MEDS: carvediloL 12.5 MG TABLET PO SCH ×2 (10:11→16:57)
[2022-04-06] MEDS: amLODIPine 10 MG TABLET PO SCH (10:11)
[2022-04-06] MEDS: lisinopriL 10 MG TABLET PO SCH (10:11)
[2022-04-06] MEDS: CHOLECALCIFEROL 5,000 UNIT TABLET PO SCH (10:11)
[2022-04-06] MEDS: ASPIRIN CHEW 81 MG TABLET PO SCH (10:11)
[2022-04-06] MEDS: VALPROIC ACID 250 MG/5 ML UDCUP PO SCH ×2 (10:11→21:41)
[2022-04-06] MEDS: OMEPRAZOLE ODT 20 MG TABLET PER TUBE SCH (10:12)
[2022-04-06] MEDS: predniSONE 10 MG TABLET PO SCH (10:12)
[2022-04-06] MEDS: ENOXAPARIN 40 MG/0.4 ML SYRINGE SUBCUT SCH (10:12)
[2022-04-06] MEDS: PHENYTOIN 100 MG/4 ML UDCUP PEG SCH ×3 (10:12→21:40)
[2022-04-06] MEDS: levETIRAcetam LIQUID 100 MG/ML 30 ML/BOTTLE PO SCH ×2 (10:12→21:41)
[2022-04-06] MEDS: MAGNESIUM OXIDE 400 MG TABLET PER TUBE SCH ×3 (10:13→21:41)
[2022-04-06 14:02] LABS: Arterial Base Excess iSTAT 5 MMOL/L (-2.5-2.5); Arterial Bicarbonate iSTAT 29.5 MMOL/L (20-26); Arterial O2 Saturation iSTAT 83 % (95-100); Arterial PCO2 iSTAT 40 MM HG (35-48); Arterial PO2 iSTAT 44 MM HG (80-95); Arterial Total CO2 iSTAT 31 MMO/L (23-27); Arterial pH iSTAT 7.471 (7.35-7.45)
[2022-04-06] MEDS: hydrALAZINE 20 MG/1 ML VIAL IV PRN (17:34)
[2022-04-06 18:10] LABS: Arterial Base Excess iSTAT 5 MMOL/L (-2.5-2.5); Arterial Bicarbonate iSTAT 29.2 MMOL/L (20-26); Arterial O2 Saturation iSTAT 100 % (95-100); Arterial PCO2 iSTAT 41 MM HG (35-48); Arterial PO2 iSTAT 207 MM HG (80-95); Arterial Total CO2 iSTAT 30 MMO/L (23-27); Arterial pH iSTAT 7.456 (7.35-7.45)
[2022-04-06] MEDS: ATORVASTATIN 40 MG TABLET PO SCH (21:40)
[2022-04-07] MEDS: hydrALAZINE 20 MG/1 ML VIAL IV PRN (02:49)
[2022-04-07 04:57] LABS: ABG Base Excess 5.1 MMOL/L (-2.5-2.5); ABG HCO3 28.8 MMOL/L (20-26); ABG Oxygen Saturation 90.7 % (95-100); ABG PCO2 34.9 MM HG (35-48); ABG PH 7.511 (7.35-7.45); ABG PO2 60.8 MM HG (80-95); ABG TCO2 24.1 MMOL/L (23-27)
[2022-04-07] MEDS ORDERED: FUROSEMIDE 40 MG/4 ML VIAL IV ONE (05:00)
[2022-04-07 05:30] LABS: Basophils % 0.3 % (0.0-0.8); Hematocrit 40.8 VOL% (42.0-52.0); Immature Granulocytes % 0.1 %; Immature Granulocytes Absolute 0.01 #; Lymphocytes # 0.5 10*3/uL (1.4-4.0); Lymphocytes % 6.9 % (21.2-54.2); Mean Corpuscular HGB Conc 32.8 GM/DL (32-36); Mean Corpuscular Volume 80.8 FL (87-102); Mean Platelet Volume 11.6 FL (9.6-12.0); Monocytes # 0.3 10*3/uL (0.11-0.8); Monocytes % 3.7 % (1.7-12.7); Red Cell Distribution Width 15.4 % (9.3-17.3)
[2022-04-07 05:51] LABS: Calcium 9.8 MG/DL (8.5-10.1); Osmolality,Calculated 282.8 MOS/KG (273-304); Potassium 5.1 MMOL/L (3.5-5.1)
[2022-04-07 06:01] LABS: Hemoglobin 13.4 GM/DL (14.0-18.0); Platelet Count 349 T/CUMM (130-400); Red Blood Count 5.05 MC/CUMM (3.8-5.5)
[2022-04-07] MEDS ORDERED: LEVOFLOXACIN INJ 750 MG/150 ML PREMIX IV SCH (06:30)
[2022-04-07 06:43] LABS: Anisocytosis 1+; Band Neutrophils 47 % (0-10); Eosinophils 1 % (0-10); Lymphocytes 8 % (20-55); Macrocytosis 1+; Metamyelocytes 6 %; Platelet Estimate Normal; Target Cells Few; Total Cells Counted 100
[2022-04-07 07:54] LABS: Arterial Base Excess iSTAT 5 MMOL/L (-2.5-2.5); Arterial Bicarbonate iSTAT 28.7 MMOL/L (20-26); Arterial O2 Saturation iSTAT 100 % (95-100); Arterial PCO2 iSTAT 37 MM HG (35-48); Arterial PO2 iSTAT 410 MM HG (80-95); Arterial Total CO2 iSTAT 30 MMO/L (23-27); Arterial pH iSTAT 7.499 (7.35-7.45)
[2022-04-07] MEDS ORDERED: VECURONIUM 10 MG VIAL IV ONE (08:34)
[2022-04-07] MEDS ORDERED: MIDAZOLAM 10 MG/2 ML VIAL ONE (08:34)
[2022-04-07] MEDS ORDERED: ETOMIDATE 20 MG/10 ML VIAL IV ONE (08:40)
[2022-04-07] MEDS ORDERED: MIDAZOLAM DRIP 100 MG/100 ML PREMIX IV PRN (08:51)
[2022-04-07] MEDS ORDERED: NOREPINEPHRINE DRIP 8 MG/250 ML PREMIX IV ONE ×2 (09:12→13:25)
[2022-04-07] MEDS: NOREPINEPHRINE DRIP 8 MG/250 ML PREMIX IV PRN ×4 (09:16→22:47)
[2022-04-07 10:07] LABS: Arterial Bicarbonate iSTAT 21.8 MMOL/L (20-26); Arterial pH iSTAT 7.275 (7.35-7.45)
[2022-04-07 10:39] LABS: Basophils % 0.3 % (0.0-0.8); Eosinophils % 0.3 % (0.00-10.9); Hematocrit 34.7 VOL% (42.0-52.0); Immature Granulocytes % 0.3 %; Immature Granulocytes Absolute 0.01 #; Lymphocytes # 0.5 10*3/uL (1.4-4.0); Lymphocytes % 13.3 % (21.2-54.2); Mean Corpuscular Volume 84.2 FL (87-102); Mean Platelet Volume 10.8 FL (9.6-12.0); Monocytes # 0.2 10*3/uL (0.11-0.8); Monocytes % 5.1 % (1.7-12.7); Neutrophils % 80.7 % (38.7-73.9); Red Blood Count 4.12 MC/CUMM (3.8-5.5); Red Cell Distribution Width 15.7 % (9.3-17.3)
[2022-04-07 10:40] LABS: White Blood Count 3.8 T/CUMM (4-12)
[2022-04-07 10:41] LABS: Hemoglobin 11.1 GM/DL (14.0-18.0); Platelet Count 274 T/CUMM (130-400)
[2022-04-07] MEDS ORDERED: SODIUM CHLORIDE 0.9% 1,000 ML IV ONE ×4 (10:46→17:54)
[2022-04-07 10:53] LABS: Albumin 2.3 G/DL (3.4-5.0); Bilirubin,Total 0.4 MG/DL (0.20-1.00); Calcium 8.8 MG/DL (8.5-10.1); Osmolality,Calculated 288.4 MOS/KG (273-304); Potassium 4.3 MMOL/L (3.5-5.1); Total Protein 6.3 G/DL (6.4-8.2)
[2022-04-07] MEDS: lisinopriL 10 MG TABLET PO SCH (10:54)
[2022-04-07] MEDS: cloNIDine 0.2 MG/24 HR PATCH TRANSDERM SCH (10:54)
[2022-04-07] MEDS: carvediloL 12.5 MG TABLET PO SCH ×2 (10:54→17:07)
[2022-04-07] MEDS: amLODIPine 10 MG TABLET PO SCH (10:54)
[2022-04-07 11:10] LABS: Atypical Lymphocytes Few; Band Neutrophils 43 % (0-10); Lymphocytes 19 % (20-55); Metamyelocytes 17 %; Myelocytes 3 %; Nucleated Red Blood Cells 1 /100 WBC (0-5); Platelet Estimate Normal; Total Cells Counted 100
[2022-04-07 11:11] LABS: Anisocytosis Slight; Hypochromia 1+; Macrocytosis 1+
[2022-04-07] MEDS: VALPROIC ACID 250 MG/5 ML UDCUP PO SCH ×2 (11:33→21:37)
[2022-04-07] MEDS: PIPERACILLIN/TAZOBACTAM 3,375 MG in SODIUM CHLORIDE 0.9% 100 ML IV SCH ×2 (11:33→16:04)
[2022-04-07] MEDS: PHENYTOIN 100 MG/4 ML UDCUP PEG SCH ×3 (11:33→21:36)
[2022-04-07] MEDS: ASPIRIN CHEW 81 MG TABLET PO SCH (11:33)
[2022-04-07] MEDS: predniSONE 10 MG TABLET PO SCH (11:34)
[2022-04-07] MEDS: levETIRAcetam LIQUID 100 MG/ML 30 ML/BOTTLE PO SCH ×2 (11:34→21:55)
[2022-04-07] MEDS: OMEPRAZOLE ODT 20 MG TABLET PER TUBE SCH (11:34)
[2022-04-07] MEDS: CHOLECALCIFEROL 5,000 UNIT TABLET PO SCH (11:34)
[2022-04-07] MEDS: MAGNESIUM OXIDE 400 MG TABLET PER TUBE SCH ×3 (11:34→21:37)
[2022-04-07] MEDS: LACOSAMIDE 50 MG TABLET PEG SCH ×2 (11:34→21:36)
[2022-04-07] MEDS: ENOXAPARIN 40 MG/0.4 ML SYRINGE SUBCUT SCH (11:34)
[2022-04-07] MEDS: SODIUM CHLORIDE 0.9% 1,000 ML IV SCH ×3 (11:59→19:35)
[2022-04-07 12:00] LABS: Arterial pH iSTAT 7.317 (7.35-7.45)
[2022-04-07] MEDS ORDERED: PHENYLEPHRINE 50 MG/5 ML VIAL IV ONE (15:07)
[2022-04-07 15:21] LABS: Arterial Bicarbonate iSTAT 16.9 MMOL/L (20-26); Arterial pH iSTAT 7.293 (7.35-7.45)
[2022-04-07 15:28] LABS: Hematocrit 31.9 VOL% (42.0-52.0)
[2022-04-07] MEDS ORDERED: SODIUM BICARBONATE 50 MEQ/50 ML VIAL IV ONE ×4 (15:28→22:37)
[2022-04-07 15:54] LABS: Calcium 7.2 MG/DL (8.5-10.1); Osmolality,Calculated 289.4 MOS/KG (273-304); Potassium 5.1 MMOL/L (3.5-5.1)
[2022-04-07] MEDS: PHENYLEPHRINE DRIP 40 MG/250 ML PREMIX IV PRN ×3 (16:31→22:31)
[2022-04-07] MEDS: ATORVASTATIN 40 MG TABLET PO SCH (21:37)
[2022-04-08] MEDS: SODIUM CHLORIDE 0.9% 1,000 ML IV SCH ×3 (00:03→06:37)
[2022-04-08] MEDS: PIPERACILLIN/TAZOBACTAM 3,375 MG in SODIUM CHLORIDE 0.9% 100 ML IV SCH ×2 (00:48→08:41)
[2022-04-08] MEDS: PHENYLEPHRINE DRIP 40 MG/250 ML PREMIX IV PRN ×4 (01:35→10:20)
[2022-04-08] MEDS: NOREPINEPHRINE DRIP 8 MG/250 ML PREMIX IV PRN ×4 (01:39→10:19)
[2022-04-08 03:36] LABS: Arterial Base Excess iSTAT -6 MMOL/L (-2.5-2.5); Arterial Bicarbonate iSTAT 18.4 MMOL/L (20-26); Arterial O2 Saturation iSTAT 100 % (95-100); Arterial PCO2 iSTAT 31 MM HG (35-48); Arterial PO2 iSTAT 285 MM HG (80-95); Arterial Total CO2 iSTAT 19 MMO/L (23-27); Arterial pH iSTAT 7.377 (7.35-7.45)
[2022-04-08 03:52] LABS: Basophils % 0.4 % (0.0-0.8); Eosinophils # 0.1 10*3/uL (0.0-0.87); Eosinophils % 3.3 % (0.00-10.9); Hematocrit 24.7 VOL% (42.0-52.0); Hemoglobin 8.2 GM/DL (14.0-18.0); Immature Granulocytes % 0.4 %; Immature Granulocytes Absolute 0.01 #; Lymphocytes # 0.5 10*3/uL (1.4-4.0); Mean Corpuscular HGB Conc 33.2 GM/DL (32-36); Mean Corpuscular Volume 81.5 FL (87-102); Mean Platelet Volume 11.2 FL (9.6-12.0); Monocytes # 0.1 10*3/uL (0.11-0.8); Monocytes % 3.3 % (1.7-12.7); Neutrophils % 75.6 % (38.7-73.9); Red Cell Distribution Width 15.3 % (9.3-17.3); White Blood Count 2.7 T/CUMM (4-12)
[2022-04-08 03:53] LABS: Red Blood Count 3.03 MC/CUMM (3.8-5.5)
[2022-04-08 03:55] LABS: Platelet Count 167 T/CUMM (130-400)
[2022-04-08 04:09] LABS: Alanine Aminotransferase 28 U/L (16-61); Albumin 1.5 G/DL (3.4-5.0); Alkaline Phosphatase 40 U/L (45-117); Aspartate Amino Transferase 111 U/L (0-37); Bilirubin,Total < 0.39 MG/DL (0.20-1.00); Blood Urea Nitrogen 41 MG/DL (7-18); Calcium 6.3 MG/DL (8.5-10.1); Carbon Dioxide 18 MMOL/L (21-32); Chloride 113 MMOL/L (98-107); Glucose 124 MG/DL (74-106); Osmolality,Calculated 296.8 MOS/KG (273-304); Potassium 3.9 MMOL/L (3.5-5.1); Sodium 144 MMOL/L (136-145); Total Protein 4.2 G/DL (6.4-8.2)
[2022-04-08 04:18] LABS: Band Neutrophils 10 % (0-10); Eosinophils 5 % (0-10); Lymphocytes 14 % (20-55); Metamyelocytes 1 %; Myelocytes 3 %; Platelet Estimate Adequate; Total Cells Counted 100
[2022-04-08 04:19] LABS: Hypochromia 1+; Microcytosis Slight; Ovalocytes Slight
[2022-04-08] MEDS: MAGNESIUM SULF RIDER 2 GM/50 ML PREMIX IV PRN (06:46)
[2022-04-08] MEDS: levETIRAcetam LIQUID 100 MG/ML 30 ML/BOTTLE PO SCH (08:41)
[2022-04-08] MEDS: ENOXAPARIN 40 MG/0.4 ML SYRINGE SUBCUT SCH (08:41)
[2022-04-08] MEDS: LACOSAMIDE 50 MG TABLET PEG SCH (08:41)
[2022-04-08] MEDS: MAGNESIUM OXIDE 400 MG TABLET PER TUBE SCH (08:41)
[2022-04-08] MEDS: VALPROIC ACID 250 MG/5 ML UDCUP PO SCH (08:41)
[2022-04-08] MEDS: predniSONE 10 MG TABLET PO SCH (08:41)
[2022-04-08] MEDS: PHENYTOIN 100 MG/4 ML UDCUP PEG SCH (08:41)
[2022-04-08] MEDS: OMEPRAZOLE ODT 20 MG TABLET PER TUBE SCH (08:41)
[2022-04-08] MEDS: ASPIRIN CHEW 81 MG TABLET PO SCH (08:41)
[2022-04-08] MEDS: CHOLECALCIFEROL 5,000 UNIT TABLET PO SCH (08:42)
[2022-04-08] MEDS ORDERED: SODIUM BICARB INJ 150 MEQ in DEXTROSE 5% 1,000 ML IV SCH (09:00)
[2022-04-08] MEDS ORDERED: CLINDAMYCIN INJ 600 MG/50 ML PREMIX IV SCH (09:00)
[2022-04-08] MEDS ORDERED: HYDROCORTISONE 100 MG VIAL IV SCH (09:00)
[2022-04-08] MEDS ORDERED: cefTRIAXone 2,000 MG in SODIUM CHLORIDE 0.9% 100 ML IV SCH (09:00)
[2022-04-08] MEDS ORDERED: MINERAL OIL/PETROLATUM OPH OINT 3.5 GM TUBE BOTH EYES SCH (09:00)
[2022-04-08] MEDS ORDERED: SODIUM BICARBONATE 50 MEQ/50 ML VIAL IV ONE ×2 (09:49→09:56)
[2022-04-08] MEDS ORDERED: MORPHINE 2 MG/1 ML SYRINGE IV PRN (10:52)
[2022-04-08] MEDS ORDERED: LORazepam 2 MG/1 ML VIAL IV PRN (10:52)
[2022-04-08 11:05] VITALS: BP 17/11
[2022-04-08] MEDS ORDERED: CEFEPIME 1,000 MG in SODIUM CHLORIDE 0.9% 100 ML IV SCH (12:00)
== END 2022-04-08 11:02 | disposition expired | DRG 45 ==
LOC: EDUNIT# → N.ED 19:08 → SUATTDRO 21:54 → N.EDINP 21:54 → N.3E 03-16 22:25 → N.CC 03-21 11:06 → N.3E 03-22 16:34 → N.CC 04-07 09:04
PROVIDERS: ADMIT Hospitalist; ATTEND Internal Medicine
PROC: EGDWPEG (ICD-10-PCS; 2022-03-27 11:35)